=== PATIENT | male | born 1970 | race Caucasian/White ===

== ENCOUNTER 2017-07-07 05:54 | Day surgery (SDC) | payer OTHER ==
[~2017-07-07] VITALS: Ht 167.6 cm; Wt 70.1 kg
[2017-07-07] VITALS (11 sets, daily range): BP systolic 103–126; BP diastolic 54–72; PULSE 66–78; RESP 11–21; Ht 167.6 cm; Wt 70.1 kg
[~2017-07-07 05:54] MED LIST: HTN MEDS; RTPRO5 IH
[2017-07-07] MEDS ORDERED: CEFAZOLIN 2 GM/50 ML (PMX) 50 ML IVPB SCH (06:00)
[2017-07-07] MEDS ORDERED: LACTATED RINGER'S 1,000 ML IV* SCH (06:00)
[2017-07-07] MEDS ORDERED: LOSA100T7 PO (06:42)
[2017-07-07] MEDS ORDERED: HYD25 PO (06:42)
[2017-07-07] MEDS ORDERED: MELO7.5O PO (06:42)
[2017-07-07] MEDS ORDERED: GABA300C16 PO (06:42)
[2017-07-07] MEDS ORDERED: DESFLURANE 15 MIN ONE (07:00)
--- NOTE | 2017-07-07 07:19 | HPN ---
Date/Time of Note Date/Time of Note DATE: 07/07/17 TIME: 07:18 Interval H&P Admission Note Pt. seen H&P reviewed: No system changes JUAREZ MAZARIGEOS MD Jul 07, 2017 07:19
[2017-07-07] MEDS ORDERED: THROMBIN 5000 UNIT VIAL ONE (07:38)
[2017-07-07] MEDS ORDERED: BUPIVACAINE 0.5%/EPI (SDV) 10 ML INJ ONE (07:38)
[2017-07-07] MEDS ORDERED: POLYMYXIN/BACITRACIN 1L IRRIG ONE (07:38)
[2017-07-07] MEDS ORDERED: GELATIN SIZE 100 SPONGE ONE (07:38)
[2017-07-07] MEDS ORDERED: FENTAnyl 50 MCG/ML VIAL ONE (07:58)
[2017-07-07] MEDS ORDERED: BETAMET NA PHOS/AC(6 MG/ML) 5ML INJ ONE (08:14)
[2017-07-07] MEDS ORDERED: DIPHENHYDRAMINE 50 MG INJ IV PRN ×2 (10:00→13:00)
[2017-07-07] MEDS ORDERED: ONDANSETRON 4 MG INJ IV PRN ×3 (10:00→13:00)
[2017-07-07] MEDS ORDERED: MEPERIDINE 25 MG INJ IV PRN ×2 (10:00→13:00)
[2017-07-07] MEDS ORDERED: OXYCODONE/ACETAMINOPHEN (5/325) TAB PO PRN (10:00)
[2017-07-07] MEDS ORDERED: FENTAnyl 50 MCG/ML VIAL IV PRN ×5 (10:00→13:00)
[2017-07-07] MEDS ORDERED: HYDROmorphONE (0.2 MG/ML) 10ML SYG IV PRN ×5 (10:00→13:00)
[2017-07-07] MEDS ORDERED: METOCLOPRAMIDE 10 MG INJ IV PRN ×2 (10:00→13:00)
[2017-07-07] MEDS ORDERED: SUGAMMADEX SODIUM 200 MG/2 ML VIAL IV ONE (10:01)
[2017-07-07] MEDS ORDERED: ROCURONIUM 50 MG INJ ONE (10:01)
[2017-07-07] MEDS ORDERED: CEFAZOLIN 1 GM INJ ONE (10:01)
[2017-07-07] MEDS ORDERED: LIDOCAINE 2% (SDV) 5 ML INJ ONE (10:01)
[2017-07-07] MEDS ORDERED: PROPOFOL 20 ML ONE (10:01)
[2017-07-07] MEDS ORDERED: SUCCINYLCHOLINE CHLORIDE 100 MG/5 ML SYG IV ONE (10:01)
--- NOTE | 2017-07-07 10:04 | PDOCDIS ---
Discharge Instructions CONDITION Patient Condition: Good HOME CARE INSTRUCTIONS: Diet Instructions: Regular ACTIVITY: Activity Restrictions: Avoid heavy lifting Avoid Heavy Housework FOLLOW UP/APPOINTMENTS Follow-up Plan Follow-up with Dr. Mazariegos in 2 weeks JUAREZ MAZARIEGOS MD Jul 07, 2017 10:04
--- NOTE | 2017-07-07 10:12 | OPR ---
Date/Time of Note Date/Time of Note DATE: 07/07/17 TIME: 10:10 Operative Report Free Text/Dictation DATE OF OPERATION: 07/07/2017 PREOPERATIVE DIAGNOSES: Left sided L4-L5 disk herniation with L5 radiculopathy POSTOPERATIVE DIAGNOSES: Left sided L4-L5 disk herniation with L5 radiculopathy OPERATION PERFORMED: Left L4-L5 microdiscectomy SURGEON: Juarez Mazariegos MD ANESTHESIA: General endotracheal ESTIMATED BLOOD LOSS: 15 mL SURGICAL INDICATION: The patient is a 46 year-old male who presents with a history of left lower extremity pain and weakness. He was found to have a disc herniation which correlated well with his symptoms. The patient had failed conservative treatment. Risks, benefits, and alternatives to microdiscectomy were explained to the patient and they wished to proceed. Risks explained included but were not exclusive of bleeding, infection, cauda equina syndrome, nerve injury, dural tear, iatrogenic instability, recurrent disc herniation, fracture, vascular injury, bowel injury, stroke, heart attack and pulmonary embolism. DESCRIPTION OF TECHNIQUE: The patient was identified in the preoperative area and taken to the operating room. Rapid induction of general endotracheal anesthesia was performed. The patient was given 2 g of cefazolin for prophylaxis. The patient was then placed in the prone position on the Len frame on a Can flat top table with all prominences well padded. The back was prepped and draped in the usual sterile manner. Using a spinal needle and intraoperative fluoroscopy, the appropriate level was clearly identified (L4-L5) . The skin was injected using 0.5% Marcaine with epinephrine. Longitudinal midline incision was then created using a 10 blade. Further dissection through soft tissue was performed using electrocautery down to the spinous processes. The dissection was taken down the left side of the lamina and over the facet joint capsule. A self-retaining retractor was applied. Again, intraoperative fluoroscopy confirmed the appropriate level. The microscope was brought into use for microdissection. A small portion of the caudal aspect of the cephalad lamina was resected using a high-speed bur. A series of Kerrison rongeurs were then used to resect the ligamentum flavum. The dura and traversing nerve root were both directly visualized. These were retracted gently in a medial direction. Immediately, the extruded disc fragment was noted. The pseudo anulus was incised using an 11 blade. Several loose fragments of disk were removed. These were removed back to a stable portion of the disk. The disk space was further pressurized using a using normal saline through a syringe to ensure that no loose fragments remained behind. Palpation with a ball-tip probe did not reveal any further stenosis. The traversing L5 nerve root was noted to be significantly decompressed. Meticulous attention was paid towards hemostasis using FloSeal as well as Gelfoam and thrombin. Care was taken to remove all FloSeal and Gelfoam prior to wound closure. The fascia was then closed using 0 Vicryl in an interrupted fashion. Subcutaneous tissue was closed using 2-0 Vicryl in an interrupted fashion. The skin was closed using a running 4-0 Monocryl stitch. The wound was dressed using Dermabond and a 4x4 sterile gauze. The patient was returned to the supine position. He was extubated immediately postoperatively and taken to the recovery room in stable condition. COMPLICATIONS: None. Surgeon see signature line Anesthesia Type: general Estimated Blood Loss: 10 - 50 ml's Transfusion Required: no Specimen: none Specimens L4-L5 disk Grafts/Implants: none Complications: no Pt Condition Post Procedure: stable Disposition: PACU JUAREZ MAZARIEGOS MD Jul 07, 2017 10:12
[2017-07-07] MEDS ORDERED: PROCHLORPERAZINE 10 MG TAB PO PRN (10:30)
[2017-07-07] MEDS ORDERED: HYDROCODONE/APAP (5/325) TAB PO PRN ×2 (10:30)
[2017-07-07] MEDS ORDERED: NALOXONE (0.4 MG/ML) INJ IV PRN (10:30)
[2017-07-07] MEDS ORDERED: NACL 0.9% 3 ML SYG IV SCH (10:30)
[2017-07-07] MEDS ORDERED: HYDROmorphONE 1 MG/ML SYG IV PRN (10:30)
[2017-07-07] MEDS: HYDROmorphONE (0.2 MG/ML) 10ML SYG IV PRN ×2 (10:31→11:05)
--- NOTE | 2017-07-07 13:09 | RADRPT ---
PROCEDURE: XR fluoro guidance CLINICAL INDICATION: Lumbar decompression TECHNIQUE: Intraoperative fluoroscopy performed. 2 images submitted. Total fluoro time: 6.1 secon ds COMPARISON: None available FINDINGS: Instruments demonstrated posteriorly at the L4-5 level. See operative report for details. IMPRESSION: Fluoroscopic guidance for lumbar spine surgery. RPTAT: VV .Angel Mcallister MD, Date Time Electronically viewed and signed by .Angel Mcallister MD, on 07/07/2017 13:09 .O/
== END 2017-07-07 13:20 | disposition home or self-care (01) ==
LOC: SDS 05:54
PROVIDERS: ATTEND Orthopaedic Surgery
DX: M51.16 Intervertebral disc disorders with radiculopathy, lumbar region (principal); I11.0 Hypertensive heart disease with heart failure; I50.9 Heart failure, unspecified; I25.10 Atherosclerotic heart disease of native coronary artery without angina pectoris; E78.5 Hyperlipidemia, unspecified; J44.9 Chronic obstructive pulmonary disease, unspecified; F17.210 Nicotine dependence, cigarettes, uncomplicated
CPT/HCPCS: 63030; 72100; 88304; 97162; J0690; J0702; J1170; J2175; J2405; J3010; Z7512; Z7610; J7999

== ENCOUNTER 2018-11-09 06:23 | Inpatient (IN) | payer OTHER ==
[2018-11-09] VITALS (28 sets, daily range): BP systolic 89–137; BP diastolic 46–118; PULSE 89–130; RESP 14–29; Ht 167.6 cm; Wt 66.8 kg
[~2018-11-09] VITALS: Ht 167.6 cm; Wt 66.8 kg
[~2018-11-09 06:23] MED LIST changes: +GABA300C16 PO; +HYDR25TA6 PO; +LOSA100T15 PO; +MELO7.5O PO
[2018-11-09] MEDS ORDERED: ROCURONIUM 50 MG INJ ONE (07:00)
[2018-11-09] MEDS ORDERED: CEFAZOLIN 1 GM INJ ONE ×2 (07:00→07:46)
[2018-11-09] MEDS ORDERED: SEVOFLURANE 15 MIN ONE (07:00)
--- NOTE | 2018-11-09 07:16 | PREAC ---
Date/Time of Note Date/Time of Note DATE: 11/09/18 TIME: 07:07 Anesthesia Eval and Record Evaluation Time Pre-Procedure Interview DATE: 11/09/18 TIME: 07:07 Age 48 Sex male NPO: 8 hrs Preoperative diagnosis Degenerative Disc Disease L4-5 With Left sided SUB Planned procedure L4-5 And L5 S1 Inter Body Fusion Retroperitoneal Aproach Autograft Allograft Synthetic Graft BMP With Posterior Spinal Instrumented Fusion Past Medical History Past Medical History: Includes Cardio: Dyslipidemia, Arrythmia Endo: Other Pulm: Smoking Hx, Asthma Neuro: Other Musculoskeletal: Osteoarthritis Renal: Other Hepatic: Other GI: Other Heme: Other Psych: Depression, Anxiety Infection(s): Other Recreational drugs: Other : Other Surgery & Anesthesia Issues Hx of difficult intubation, Aspiration risk Meds Anticoagulation: No Beta Elsy within 24 hr: No Reason Beta Elsy not given: Pt. not on B-Elsy Reported Medications Meloxicam* (Meloxicam*) 7.5 Mg/5 Ml Oral.susp, 15 MG PO DAILY, #300 ML 07/07/17 Gabapentin* (Gabapentin*) 300 Mg Capsule, 300 MG PO DAILY, #60 CAP 07/07/17 Hydrochlorothiazide* (Hydrochlorothiazide*) 25 Mg Tab, 25 MG PO DAILY, #30 TAB 07/07/17 Losartan Potassium* (Losartan Potassium*) 100 Mg Tablet, 100 MG PO DAILY, TAB 07/07/17 [Htn Meds] No Conflict Check 02/08/13 Albuterol Sulfate* (Proventil* Neb) 0.5 Ml Nebu, 0.5 ML IH PRN 02/08/13 Meds reviewed: Yes Allergies Coded Allergies: No Known Allergy (Unverified , 11/08/18) Allergies Reviewed: Yes Labs/Studies Labs Reviewed: Reviewed by anesthesiologist test: N/A Studies: ECG, CXR Pre-procedure Exam Airway: Adequate mouth opening Mallampati: Mallampati II Teeth: Normal Lung: Normal Heart: Abnormal Anticipated Difficutly with IV: Anticipate Difficult IV Access ASA Physical Status ASA physical status: 2 Emergency: None Planned Anesthetic General/MAC: ETT Neuraxial: Other Nerve block: Other Planned Pain Management Parenteral pain med, Local by surgeon Pre-operative Attestations Prior to commencing anesthesia and surgery, the patient was re-evaluated, there was verification of: *The patient's identity *The results of appropriate recent lab work and preoperative vital signs *The above evaluation not changing prior to induction *Anesthetic plan, risk benefits, alternative and complications discussed with patient/family; questions answered; patient/family understands, accepts and wishes to proceed. NGUYEN STAFFORD MD Nov 09, 2018 07:16
[2018-11-09] MEDS ORDERED: BUPIVACAINE 0.5%/EPI (SDV) 30 ML INJ ONE ×2 (07:46→12:55)
[2018-11-09] MEDS ORDERED: GELATIN SIZE 100 SPONGE ONE (07:46)
[2018-11-09] MEDS ORDERED: THROMBIN 5000 UNIT VIAL ONE (07:46)
[2018-11-09] MEDS ORDERED: HEPARIN 1000 UNITS/ML 10 ML INJ ONE (07:46)
--- NOTE | 2018-11-09 07:46 | HPN ---
Date/Time of Note Date/Time of Note DATE: 11/09/18 TIME: 07:46 Interval H&P Admission Note Pt. seen H&P reviewed: No system changes JUAREZ MAZARIEGOS MD Nov 09, 2018 07:46
--- NOTE | 2018-11-09 12:29 | OPR ---
DATE OF OPERATION: 11/09/2018 SURGEON: Ej Magallon MD [employer] PLANT OPERATOR: Juarez Mazariegos MD SECOND DATA CONVERSION OPERATOR: Vy Singh MD PREOPERATIVE DIAGNOSIS: Rule out ureteral injury. POSTOPERATIVE DIAGNOSES: 1. Degenerative disk disease, no evidence of ureteral injury. 2. Gross hematuria. INDICATIONS FOR PROCEDURE: This patient has undergone an anterior lumbar disk replacement through a left retroperitoneal approach. At the end of the case he was noticed to have some mild gross hematur ia. FINDINGS: I was consulted in order to identify the left ureter and identify any possible ureteral tr auma. This was an intraoperative consultation. The patient was under anesthesia. Abdomen was still open. PROCEDURE IN DETAIL: Through the existing abdominal incision, the retroperitoneum was reentered. Wi th the help of Dr. Singh and Dr. Mazariegos, the retractors were placed. Retroperitoneum was exam ined. The 2 levels of disk replacement were identified. The common iliac artery as well as a common iliac vein were identified. The colon mesentery as well as the Gerota's fascia along the lower pole of the kidney were identified. At this point, the ureter was identified to be within the retracted tissue medially. Therefore, the ureter was not lying over the common iliac artery. This would be t he appropriate approach for the spine procedure. Without opening the peritoneum, the ureter was part ially and carefully dissected off of the posterior aspect of the colon mesentery and Gerota's fascia. This dissection was carried from one spine level cephalad to where the highest lumbar disk had been replaced. Ureter in this area appeared to be completely intact. Next, ureter was carefully dissect ed all the way down deep into the pelvis beyond the sacrum. Ureter appeared to be intact. There jennifer eared to be no evidence of urine leak. There appeared to be no hydronephrosis. There was good peris talsis to the ureter. The periureteral adhesions were carefully taken down in order to examine the m edial, lateral, posterior and anterior aspects of the ureter. The ureter appeared to be without any evidence of avulsion or injury. It appeared that the hematuria may have been due to catheter placeme nt or possibly due to ureteral contusion rather than coronary due to retraction against the ureter ra ther than any tears or avulsion. Since the ureter appeared to be completely intact within the field of examination, decision was made to not do any further procedures on the ureter. This procedure wa s performed on the left ureter. The right ureter was not in the field of dissection. Case was turne d back over to Dr. Singh and Dr. Mazariegos for closure of the abdomen. Plan for patient will be for patient to continue keeping the catheter for 2 to 3 more days, obtain a renal ultrasound to rule out hydronephrosis. BLOOD LOSS: From this port of the operation, minimal. BLOOD ADMINISTERED: None from this portion of the operation. Dictated By: EJ MAGALLON MD SR/NTS Conf#: [id number] DID#: [id number] CC: JUAREZ MAZARIEGOS MD;*EndCC*
--- NOTE | 2018-11-09 15:02 | OPR ---
Date/Time of Note Date/Time of Note DATE: 11/09/18 TIME: 14:41 Operative Report Free Text/Dictation DATE OF OPERATION: 11/09/2018 PREOPERATIVE DIAGNOSES: 1. L4-5 degenerative disc disease with foraminal stenosis with radiculopathy 2. L5-S1 degenerative disc disease with foraminal stenosis with radiculopathy POSTOPERATIVE DIAGNOSES: 1. L4-5 degenerative disc disease with foraminal stenosis with radiculopathy 2. L5-S1 degenerative disc disease with foraminal stenosis with radiculopathy OPERATION PERFORMED: 1. Anterior lumbar interbody fusion L4-5 2. Placement of anterior interbody device L4-5 3. Placement of posterior spinal segmental instrumentation L4-5 4. Posterior spinal fusion L4-5 5. Anterior lumbar interbody fusion L5-S1 6. Placement of anterior interbody device L5-S1 7. Placement of posterior spinal segmental instrumentation L5-S1 8. Posterior spinal fusion L5-S1 9. Interpretation of neuromonitoring SURGEON: Juarez Mazariegos MD Vascular surgeon: Kun Norman MD ANESTHESIA: General endotracheal ESTIMATED BLOOD LOSS: 350 cc SURGICAL INDICATION: The patient is a 48 year-old male who presents with an increasing history of back and bilateral leg pain. He has a past medical history significant for a left sided L4-5 microdiskectomy. The patient was found to have severe degenerative disk disease at L4-5 and L5-S1 with associated foraminal stenosis with radiculopathy. The patient had failed conservative treatments. Risks, benefits and alternatives to an anterior and posterior spinal fusion with instrumentation were explained to the patient including but not exclusive of bleeding, infection, visceral injury, nerve injury, nonunion, instrumentation failure, lack of symptom relief, myocardial infarction, stroke, and pulmonary embolism, and they wished to proceed. DESCRIPTION OF TECHNIQUE: The patient was identified in the preoperative area and taken to the operating room. Rapid induction of general endotracheal anesthesia was performed. Patient was given 2 grams of ancef for prophylaxis. The patient was positioned in the supine position on the operative table. All bony prominences were well padded. The patient's abdomen and left flank were prepped and draped in the usual sterile fashion. A time out was held. A longitudinal skin incision was made across the L4-S1 level by our vascular surgeon Dr. Norman. After the exposure was completed, I performed a L4-5 diskectomy. The disc was incised using a sharp 15 mm blade. I then used a vazquez elevator to loosen the disk material from the superior and inferior endplates. I then used a rongeur to remove the disc material and a series of curved and straight curettes to evacuate the disc space. I also used a series of pituitaries and kerrisons to ensure appropriate end plate preparation. Attention was placed to ensure removal of disk material to bleeding endplates without violation of the endplate. I then used the trial rasps to prepare and size the disc space and was able to place a 13 mm trial allograft FRA spacer with 8 degrees of lordosis. To ensure appropriate sizing of the implant, I checked for fit and placement under C arm control and I felt the 8 degree lordotic 13 mm cage gained good lordosis and mu-ism of disc height and was an appropriate fit. I then inserted the 13mm RFA cage after the trail. This cage was filled with 1 sponge of BMP and morselized bone allograft. A butress screw with a washer was then placed in the L4 vertebral body using the guide under fluoroscopy . Additional morselized allograft was placed around and anterior to the cage in the disc space. 2mL of tisseal was also used prior to placement of the cage in order to reduce the risk of BMP radiculitis. The exposure was then extended distally to the L5-S1 disk space. I performed a L5-S1 diskectomy. The disc was incised using a sharp 15 mm blade. I then used a vazquez elevator to loosen the disk material from the superior and inferior endplates. I then used a rongeur to remove the disc material and a series of curved and straight curettes to evacuate the disc space. I also used a series of pituitaries and kerrisons to ensure appropriate end plate preparation. Attention was placed to ensure removal of disk material to bleeding endplates without violation of the endplate. I then used the trial rasps to prepare and size the disc space and was able to place a 11 mm trial allograft FRA spacer with 8 degrees of lordosis. To ensure appropriate sizing of the inplant, I checked for fit and placement under C arm control and I felt the 8 degree lordotic 11 mm cage gained good lordosis and mu-ism of disc height and was an appropriate fit. I then inserted the 11mm RFA cage after the trail. This cage was filled with a small BMP and morselized bone allograft. A butress screw with a washer was then placed in the L5 vertebral body using the guide under fluoroscopy . Additional morselized allograft was placed around and anterior to the cage in the disc space. 2mL of tisseal was also used prior to placement of the cage in order to reduce the risk of BMP radiculitis. The wound was then irrigated. X-rays were taken to check for instruments. Prior to wound closure, there was noted to be some mild blood tinged urine in the catheter. Therefor, the wound was re-explored. Urology was called and the ureter was explored and disected. There was no injury the the ureter noted. The wound was then closed by our vascular access surgeon in standard technique. The posterior rectus sheath and anterior rectus sheath were both repaired. Sterile dressing was then placed. We then focused on placement of posterior spinal segmental instrumentation from L4-S1.Attention was then turned toward the decompression and instrumented fusion procedure from L4-S1. The patient was flipped to the prone position with all bony promineneces well padded. We ensured that the antibiotics were appropriately redosed. The lumbar spine was then prepped and draped in sterile fashion. A timeout was once again performed. . Using intraoperative fluoroscopy, the pedicles were identified at each level. Care was taken to alter the fluoroscopic view to have a true AP and lateral at each level. Jamshidi needles were then passed down to the lateral aspect of the pedicles through stab incisions. The Jamshidi needles were malleted into the pedicles. These were also performed under EMG guidance. Care was taken to ensure that the needles did not pass the medial wall of the pedicle on the AP view prior to checking that the needle was past the posterior wall of the vertebral body. The needles were then malleted further into the vertebral bodies themselves. Guidewires were passed through the needles and the needles were removed. Taps were applied over the guidewires. Screws were then placed bilaterally into the vertebral bodies. AP and lateral views confirmed appropriate placement of the instrumentation. Attention was turned toward the posterior spinal fusion from L4-S1. Rods were selected of the appropriate length and placed into the screw heads. End caps were applied and final tightening was performed using a dwnkic-qeaieqs-dgxfnf wrench. The exposed facet joints were decorticated using a bur. A small remaining amount of the bone (allograft) was placed into the facet joints to facilitate the posterior fusion. The wound was irrigated copiously using normal saline. The fascia was then closed using 1 Vicryl in interrupted fashion. Subcutaneous tissue was closed usi ng 2-0 Vicryl in interrupted fashion. Skin was closed using a running 4-0 Monocryl stitch. The wounds were dressed using Dermabond, sterile gauze and Tegaderm. The patient was returned to the supine position. The patient was extubated immediately postoperatively and taken to the recovery room in stable condition. Procedure Date: Nov 09, 2018 Preoperative Diagnosis 1. L4-5 degenerative disc disease with foraminal stenosis with radiculopathy 2. L5-S1 degenerative disc disease with foraminal stenosis with radiculopathy Postoperative Diagnosis 1. L4-5 degenerative disc disease with foraminal stenosis with radiculopathy 2. L5-S1 degenerative disc disease with foraminal stenosis with radiculopathy Operation/Procedure Performed 1. Anterior lumbar interbody fusion L4-5 2. Placement of anterior interbody device L4-5 3. Placement of posterior spinal segmental instrumentation L4-5 4. Posterior spinal fusion L4-5 5. Anterior lumbar interbody fusion L5-S1 6. Placement of anterior interbody device L5-S1 7. Placement of posterior spinal segmental instrumentation L5-S1 8. Posterior spinal fusion L5-S1 9. Interpretation of neuromonitoring Surgeon see signature line [employer] Manager Kun Norman MD (Vascular access surgeon) Anesthesia Type: general Estimated Blood Loss: other Transfusion none Specimen none Grafts/Implants L4-5: 13 mm; 8 degree lordotic FRA allograft L5-S1: 11 mm; 8 degree lordotic FRA allograft Buttress screw and washer x 2 Small BMP 35 cc of corticocancellous bone allograft L4 and L5: 6.5 x 45 mm NuVasive Pedicle screw x 4 S1: 6.5 x 40 mm NuVasive Pedicle screw x 2 60 and 65 mm Kael and end caps Complications none Pt Condition Post Procedure: stable Disposition: PACU Procedure Description The patient was identified in the preoperative area and taken to the operating room. Rapid induction of general endotracheal anesthesia was performed. Patient was given 2 grams of ancef for prophylaxis. The patient was positioned in the supine position on the operative table. All bony prominences were well padded. The patient's abdomen and left flank were prepped and draped in the usual sterile fashion. A time out was held. A longitudinal skin incision was made across the L4-S1 level by our vascular surgeon Dr. Norman. After the exposure was completed, I performed a L4-5 diskectomy. The disc was incised using a sharp 15 mm blade. I then used a vazquez elevator to loosen the disk material from the superior and inferior endplates. I then used a rongeur to remove the disc material and a series of curved and straight curettes to evacuate the disc sp valencia. I also used a series of pituitaries and kerrisons to ensure appropriate end plate preparation. Attention was placed to ensure removal of disk material to bleeding endplates without violation of the endplate. I then used the trial rasps to prepare and size the disc space and was able to place a 13 mm trial allograft FRA spacer with 8 degrees of lordosis. To ensure appropriate sizing of the implant, I checked for fit and placement under C arm control and I felt the 8 degree lordotic 13 mm cage gained good lordosis and mu-ism of disc height and was an appropriate fit. I then inserted the 13mm RFA cage after the trail. This cage was filled with 1 sponge of BMP and morselized bone allograft. A butress screw with a washer was then placed in the L4 vertebral body using the guide under fluoroscopy . Additional morselized allograft was placed around and anterior to the cage in the disc space. 2mL of tisseal was also used prior to placement of the cage in order to reduce the risk of BMP radiculitis. The exposure was then extended distally to the L5-S1 disk space. I performed a L5-S1 diskectomy. The disc was incised using a sharp 15 mm blade. I then used a vazquez elevator to loosen the disk material from the superior and inferior endplates. I then used a rongeur to remove the disc material and a series of curved and straight curettes to evacuate the disc space. I also used a series of pituitaries and kerrisons to ensure appropriate end plate preparation. Attention was placed to ensure removal of disk material to bleeding endplates without violation of the endplate. I then used the trial rasps to prepare and size the disc space and was able to place a 11 mm trial allograft FRA spacer with 8 degrees of lordosis. To ensure appropriate sizing of the inplant, I checked for fit and placement under C arm control and I felt the 8 degree lordotic 11 mm cage gained good lordosis and mu-ism of disc height and was an appropriate fit. I then inserted the 11mm RFA cage after the trail. This cage was filled with a small BMP and morselized bone allograft. A butress screw with a washer was then placed in the L5 vertebral body using the guide under fluoroscopy . Additional morselized allograft was placed around and anterior to the cage in the disc space. 2mL of tisseal was also used prior to placement of the cage in order to reduce the risk of BMP radiculitis. The wound was then irrigated. X-rays were taken to check for instruments. Prior to wound closure, there was noted to be some mild blood tinged urine in the catheter. Therefor, the wound was re-explored. Urology was called and the ureter was explored and disected. There was no injury the the ureter noted. The wound was then closed by our vascular access surgeon in standard technique. The posterior rectus sheath and anterior rectus sheath were both repaired. Sterile dressing was then placed. We then focused on placement of posterior spinal segmental instrumentation from L4-S1.Attention was then turned toward the decompression and instrumented fusion procedure from L4-S1. The patient was flipped to the prone position with all bony promineneces well padded. We ensured that the antibiotics were appro priately redosed. The lumbar spine was then prepped and draped in sterile fashion. A timeout was once again performed. . Using intraoperative fluoroscopy, the pedicles were identified at each level. Care was taken to alter the fluoroscopic view to have a true AP and lateral at each level. Jamshidi needles were then passed down to the lateral aspect of the pedicles through stab inci sions. The Jamshidi needles were malleted into the pedicles. These were also performed under EMG guidance. Care was taken to ensure that the needles did not pass the medial wall of the pedicle on the AP view prior to checking that the needle was past the posterior wall of the vertebral body. The needles were then malleted further into the vertebral bodies themselves. Guidewires were passed through the needles and the needles were removed. Taps were applied over the guidewires. Screws were then placed bilaterally into the vertebral bodies. AP and lateral views confirmed appropriate placement of the instrumentation. Attention was turned toward the posterior spinal fusion from L4-S1. Rods were selected of the appropriate length and placed into the screw heads. End caps were applied and final tightening was performed using a iuhvfd-armqlax-kiocdh wrench. The exposed facet joints were decorticated using a bur. A small remaining amount of the bone (allograft) was placed into the facet joints to facilitate the posterior fusion. The wound was irrigated copiously using normal saline. The fascia was then closed using 1 Vicryl in interrupted fashion. Subcutaneous tissue was closed using 2-0 Vicryl in interrupted fashion. Skin was closed using a running 4-0 Monocryl stitch. The wounds were dressed using Dermabond, sterile gauze and Tegaderm. The patient was returned to the supine position. The patient was extubated immediately postoperatively and taken to the recovery room in stable condition. JUAREZ MAZARIEGOS MD Nov 09, 2018 14:52
--- NOTE | 2018-11-09 15:07 | NUR ---
RECEIVED RESTLESS AND CRYING IN PAIN. ABDOMINAL DRESSING DRY AND INTACT. BACK DRESSING DRY AND INTACT. A LINE ON LEFT WRIST IN PLACE WITH GOOD WAVEFORM. IV ACCESS ALSO ON RIGHT HAND INTACT.
[2018-11-09] MEDS ORDERED: FENTAnyl 50 MCG/ML VIAL ONE (15:11)
[2018-11-09] MEDS ORDERED: MEPERIDINE 25 MG INJ ONE (15:11)
--- NOTE | 2018-11-09 15:16 | PAC ---
Date/Time of Note Date/Time of Note DATE: 11/09/18 TIME: 15:16 Post-Anesthesia Notes Post-Anesthesia Note Last documented vital signs Vital Signs Date Temp Pulse Resp B/P (MAP) Pulse Ox O2 O2 Flow FiO2 Time Delivery Rate 11/09/18 97.5 96 18 136/82 98 Room Air 07:19 (100) Activity: WNL Respiratory function: WNL Cardiovascular function: WNL Mental status: Baseline Pain reasonably controlled: Yes Hydration appropriate: Yes Nausea/Vomiting absent: No NGUYEN STAFFORD MD Nov 09, 2018 15:16
[2018-11-09] MEDS ORDERED: ONDANSETRON 4 MG INJ IV PRN ×2 (15:30)
[2018-11-09] MEDS ORDERED: ACETAMINOPHEN 325 MG TAB PO PRN (15:30)
[2018-11-09] MEDS ORDERED: HYDROCODONE/APAP (5/325) TAB PO PRN ×2 (15:30)
[2018-11-09] MEDS ORDERED: NACL 0.9% 3 ML SYG IV SCH (15:30)
[2018-11-09] MEDS ORDERED: FENTAnyl 50 MCG/ML VIAL IV PRN ×3 (15:30)
[2018-11-09] MEDS ORDERED: METOCLOPRAMIDE 10 MG INJ IV PRN (15:30)
[2018-11-09] MEDS ORDERED: MEPERIDINE 25 MG INJ IV PRN (15:30)
[2018-11-09] MEDS ORDERED: HYDROmorphONE 1 MG/5 ML IV SYRINGE IV PRN ×2 (15:30)
[2018-11-09] MEDS ORDERED: PROCHLORPERAZINE 10 MG TAB PO PRN (15:30)
[2018-11-09] MEDS ORDERED: AL HYDROX/MG HYDROX/SIMETH 30 ML CUP PO PRN (15:30)
[2018-11-09] MEDS ORDERED: NALOXONE (0.4 MG/ML) INJ IV PRN (15:30)
[2018-11-09] MEDS ORDERED: hydrALAzine 20 MG INJ IV PRN (15:30)
[2018-11-09] MEDS ORDERED: LABETALOL HCL 20MG INJ IV PRN (15:30)
[2018-11-09] MEDS: HYDROmorphONE 0.2 MG/ML PCA IV SCH (15:33)
--- NOTE | 2018-11-09 15:48 | NUR ---
DR CLIFFORD INFORMED OF CONSULT THROUGH HIS OFFICE SEC CESSY BY [facility] PACU STOCKKEEPER.
--- NOTE | 2018-11-09 16:00 | NUR ---
A LINE DISCONTINUED, PRESSURE APPLIED , NO BLEEDING NOTED.
[2018-11-09] MEDS: HYDROmorphONE 1 MG/5 ML IV SYRINGE IV PRN ×2 (16:03→16:19)
--- NOTE | 2018-11-09 16:05 | NUR ---
PROP AND SCENERY MAKER IN USE BUT NEEDS TO BE REMINDED AND ENCOURAGED WHEN C/O PAIN.
--- NOTE | 2018-11-09 16:06 | NUR ---
CALM AT THIS TIME. DOZING ON AND OFF, EASILY AWAKENED. NO S/S BLEEDING.
--- NOTE | 2018-11-09 16:41 | OPR ---
DATE OF OPERATION: PREOPERATIVE DIAGNOSIS: Degenerative disk disease, lumbosacral spine. POSTOPERATIVE DIAGNOSIS: Degenerative disk disease, lumbosacral spine. PROCEDURES: 1. Anterior retroperitoneal exposure interbody fusion lumbosacral spine, L4 to L5. 2. Anterior retroperitoneal exposure interbody fusion lumbosacral spine, L5 to S1. SURGEON: Ronnie Singh MD COSURGEON: Juarez Mazariegos MD ESTIMATED BLOOD LOSS: 150 mL INFORMED CONSENT: Risks, benefits, complications, alternative therapies were explained to the patien t and consent was obtained. OPERATIVE TECHNIQUE: The patient was placed in supine position, prepped and draped in usual sterile fashion. Timeout was called. Antibiotics were given. Risks and benefits that were explained to the patient included but not limited to bleeding, infection, damage to bowel, damage to ureter, wound in fection, wound dehiscence, DVT, PE, loss of limb, loss of life, high risk nature of the operation wer e fully explained and stressed to the patient. All questions answered. The patient was placed in mcqueen pine position. I made a 10 cm incision midline from umbilicus down to the xiphoid process. Incision was taken down to subcutaneous tissue which was then opened using electrocautery. Left anterior rec tus sheath was opened in the direction of the wound. The left rectus muscle was mobilized superiorly and inferiorly 5 cm each. Posterior rectus sheath was incised superiorly about 3 cm. Bookwalter re tractor was placed retracting the bowel contents to the right and left rectus muscle to left. I diss ected the left common iliac artery and vein, external iliac artery and vein. The middle sacral vesse ls were ligated using titanium clips and the iliolumbar vein on the left side was ligated using 2-0 s ilk ties and titanium clips. Exposure for L4 to L5 was obtained by moving the left common iliac trina ry and vein, external iliac artery and vein, vena cava and aorta to the right. Exposure for L5 to S1 was obtained between the right and left common iliac artery and vein. We proceeded with the diskect demar and placement of the new cage. Please refer to Dr. Mazariegos's dictations for the details of viola t operation. After all the x-rays were read by Dr. Mazariegos, needle count and sponge count was max ect. The wound was irrigated using antibiotic solution. Posterior rectus sheath was closed using 0 Vicryl suture in running fashion. At this time, we noticed that the patient had a tinge of blood in the ureter. The wound was opened again. Urology consultation was obtained. The urologist came to t he room, examined the ureter and he thought that there is no injury to the ureter. The wound was irr igated again. The anterior rectus sheath was closed using a #1 Vicryl suture in running fashio n with interrupted sutures in the middle. The wound was irrigated again and closed in 2 layers of 2- 0 Vicryl suture for subQ and 4-0 Monocryl suture for running subcuticular skin closure. The patient tolerated the procedure well. Dictated By: RONNIE SINGH MD FM/NTS Conf#: [id number] DID#: [id number] CC: JUAREZ MAZARIEGOS MD; AYAN CLIFFORD MD;*End*
[2018-11-09] MEDS ORDERED: DIPHENHYDRAMINE 50 MG INJ ONE (16:44)
--- NOTE | 2018-11-09 16:48 | CONS ---
DATE OF ADMISSION: 11/09/2018 DATE OF CONSULTATION: REASON FOR CONSULTATION: Surgical. HISTORY OF PRESENT ILLNESS: This is a 48-year-old male with a history of degenerative disk disease, lumbosacral spine. PAST MEDICAL HISTORY: Hypertension, hyperlipidemia. PAST SURGICAL HISTORY: None. ALLERGIES: NONE. SOCIAL HISTORY: No smoking, drinking or drug use. MEDICATION LIST: Reviewed. PHYSICAL EXAMINATION: VITAL SIGNS: Blood pressure is 110/60, pulse is 80, respirations 18. CARDIOVASCULAR: Regular rate and rhythm. Normal S1, S2. LUNGS: Clear. ABDOMEN: Soft. EXTREMITIES: Warm. IMPRESSION: Degenerative disk disease, lumbosacral spine. RECOMMENDATIONS: We will proceed with anterior retroperitoneal exposure interbody fusion of lumbosac ral spine. Risks, benefits, complications, alternative therapies, high-risk nature of the operation were fully explained to the patient, consent obtained. Risks and benefits that were explained to the patient included but not limited to bleeding, infection, damage to the bowel, damage to ureter, woun d infection, wound dehiscence, DVT, PE, loss of limb, loss of life, high-risk nature of the operation were fully explained and stressed to the patient. Dictated By: RONNIE REICH MD FM/NTS Conf#: [id number] DID#: [id number] CC: AYAN CLIFFORD MD; JUAREZ MAZARIEGOS MD;*EndCC*
--- NOTE | 2018-11-09 16:52 | NUR ---
REFERRED TO DR STAFFORD FOR RASHES IN FACE, BENADRYL GIVEN. CAME IN AND STATED RASHES IS FROM [facility]. PHYSICAL THERAPIST AT [facility] AND WORKED ON PATIENT, ABLE TO SIT ONLY WITH SOME DISCOMFORT. MOVING LEGS AND FEET WELL, WITH GOOD PEDAL PULSES.
--- NOTE | 2018-11-09 16:53 | NUR ---
PT [facility] Patient: Alfonzo Montiel : 1970 Age/Sex: 48/M Unit#: [id number] Room/Bed: 418/A User: Jude May PT Date: 11/09/18 16:44 Type: PT Technical Record Therapy day number 1 Evaluation Start Time 15:35 Evaluation Total Time 0 min Subjective Current complaint of pain Pain Scale NUMERIC Pain Intensity 10 (0-10) Patient Stated Goal for Pain Relief 0 (0-10) Pain Level Comment back pain/surgical site pain Pre Treatment Vital Signs Stable Yes Exercise Assessment Label Bilat Lower Extremity Exercise Type Active ROM Additional Exercise Comments semi-supine APs Supine to Sit Moderate Assist Bed Mobility Sit to Supine Maximum Assist Sitting Tolerance 2 min Additional Mobility Comments rolling L and R multiple times to find comfortable position, log-roll Patient uses wheelchair Not Applicable Additional Gait Comments TBA Additional Stairs Assist Comments TBA Static Sitting Balance Fair minus Dynamic Sitting Balance Poor plus Safety Judgement Fair Activity Tolerance Poor Equipment Present A pump Luke Catheter IV pump LOGGING ASSISTANT Additional Equipment Present PACU lines and tubes Post Treatment Pain Intensity 10 0-10 Variance Documentation SEE PT EVAL NOTES PT Technical Record Comment PT EVAL Pt is a 48 yo M S/P anterior lumbar interbody fusion L4-5, L5-S1; anterior interbody device L4-5, L5-S1; posterior spinal segment instrumentation L4-5, L5-S1; posterior spinal fusion L4-L5, L5-S1. Pt received in PACU. Precautions: Spinal precautions, LSO when OOB CLOF: soda flaker cleared pt for PT evaluation. Pt received semi-supine in bed, vitals assessed and stable, agreeable to PT evaluation. Noted pt in significant pain, pushing down with B hands to offload back in effort to reduce pain, unable to get comfortable. Pt educated in spinal precautions, use of LSO (when arrives), and purpose of PT evaluation. Rolling L and R with mod-maxA, supine<>sitting EOB with mod-maxA. Noted once sitting pt BP at 77/61, pt returned to supine position. RN notified. Pt continued to report discomfort, a "herman horse feeling" regardless of position, repositioning to left, right sidelying, and finally back in semi-supine. Pt left in semi-supine, all needs in reach, RN notified of pt's status. Recommendation: PT evaluation limited due to pt with signficant low back discomfort, unable to find comfortable position whether in side-lying or semi-supine. Pt mobility limited by back pain, requiring mod-maxA for mobility tasks. D/c recommendation pending pt progress. Anticipated DME: FWW, 3:1 commode. P: Continue c PT POC (QID x 7) Addendum: 11/11/18 at 1308 by JUDE MAY PT Addition: PLOF: Pt lives with and children in a [facility] with 0E. Pt reports he was ambulatory using a FWW.
--- NOTE | 2018-11-09 16:54 | NUR ---
DR CLIFFORD AT BEDSIDE AND SPOKE TO PATIENT AND TO HIS AND ANSWERED THEIR QUESTIONS. REPORT TO THOMAS HERNANDEZ. FOR TRANSFER TO ROOM 418.
[2018-11-09] MEDS ORDERED: ALBUTEROL HFA 8 GM INHALER INH PRN (17:00)
[2018-11-09] MEDS ORDERED: DIPHENHYDRAMINE 50 MG INJ IV PRN (17:00)
--- NOTE | 2018-11-09 17:30 | NUR ---
ADMIT TO 4 WEST RECEIVED PT FROM PACU. PT MOANING, IN PAIN 8/10 AT THIS TIME. VSS. LENS GRINDER USE RINFORCED. PT WITH AT BEDSIDE, ORIENTED TO ROOM, POC AND UNIT ROUTINE, ALL QUESTIONS ANSWERED. WILL CONTINUE MONITORING.
[2018-11-09] MEDS: SOD CHLORIDE 0.9% 1,000 ML IV SCH (17:42)
[2018-11-09] MEDS: CEFAZOLIN 1 GM/50 ML (PMX) 50 ML IVPB SCH ×2 (17:42→23:57)
--- NOTE | 2018-11-09 18:30 | NUR ---
END OF SHIFT NOTE PT RESTING IN BED, SLEEPING. WITH AT BEDSIDE. VSS, NO CHANGE IN CONDITION. DELIVERY AND MAIL SORTER INFUSING. ATTEMPTED TO INSTRUCT USE OF I.S BUT PT TOO DROWSY AND REPORTING TOO MUCH PAIN. SAFETY MAINTAINED THROUGHOUT SHIFT. BED IN LOW POSITION, CALL LIGHT IN REACH. WILL ENDORSE POC TO NOC RN.
--- NOTE | 2018-11-09 19:08 | CONS ---
DATE OF ADMISSION: 11/09/2018 DATE OF CONSULTATION: 11/09/2018 Thank you very much for allowing me to evaluate the above patient who underwent lumbar back surgery. HISTORICAL EVENTS: As you well know, this patient underwent a left-sided L4-L5 microdiskectomy 10/11 17. He did well for six months after this and subsequently had the onset of low back pain and left g reater than right-sided leg pain. He underwent conservative therapy including anti-inflammatories, p hysical therapy and epidurals to no avail. Ultimately, he was evaluated by you and because of his co ntinued symptoms, he elected to proceed with surgery. Postoperatively in the recovery room, he has l ow back pain, but denies cough, wheezing, nausea, vomiting, or abdominal pain. PAST MEDICAL HISTORY: 1. Anxiety. 2. Gastroesophageal reflux. 3. History of hypertension. 4. Asthma. SOCIAL HISTORY: Heavy smoker. ALLERGIES: NONE. FAMILY HISTORY: To be reviewed later. MEDICATIONS: 1. Gabapentin 600 mg per day. 2. Hydrochlorothiazide 25 mg per day. 3. Losartan 100 mg per day. 4. Meloxicam 50 mg per day. 5. Nicoderm 21 mcg per day. 6. Omeprazole 20 mg per day. 7. ProAir 90 mcg twice a day. 8. Qvar 2 puffs 2 times per day. 9. Wellbutrin 150 XL per day. PHYSICAL EXAMINATION: GENERAL: [place] male in no acute distress. VITAL SIGNS: BP 128/78, pulse 72, respirations were 18. He was afebrile. EYES: Extraocular muscles were full. NOSE, MOUTH, AND THROAT: Normal. NECK: Supple. There was no jugular venous distention, thyroid enlargement or adenopathy. LUNGS: Clear. HEART: Rhythm regular, no murmur. No third or fourth sound. ABDOMEN: Nontender. Liver and spleen were not palpable. No mass or tenderness were noted. EXTREMITIES: No edema. Calves nontender. Pulses 2+. IMPRESSION: 1. Stable post-lumbar back surgery. 2. History of asthma. PLAN: 1. We will resume his bronchodilators. 2. We will evaluate for signs and symptoms of thromboembolic disease. 3. We will continue antihypertensive therapy and monitor BP throughout. Dictated By: AYAN HINTON/DOMINIQUE Conf#: [id number] [facility]#: [id number] CC: JUAREZ MAZARIEGOS MD;*[facility]*
[2018-11-09] MEDS ORDERED: LORAZEPAM 2 MG INJ IV PRN (21:30)
[2018-11-09] MEDS: MOMETASONE 0.24 GM INHALER INH SCH (21:48)
[2018-11-09] MEDS: LORAZEPAM 2 MG INJ IV PRN (22:59)
[2018-11-10 00:10] VITALS: BP 128/67; PULSE 102; RESP 20
[2018-11-10] MEDS: HYDROmorphONE 0.2 MG/ML PCA IV SCH (05:03)
[2018-11-10] MEDS: CEFAZOLIN 1 GM/50 ML (PMX) 50 ML IVPB SCH ×2 (05:03→11:41)
[2018-11-10] MEDS: PANTOPRAZOLE (EC) 40 MG TAB PO SCH (05:24)
[2018-11-10] MEDS: SOD CHLORIDE 0.9% 1,000 ML IV SCH ×3 (05:30→18:00)
--- NOTE | 2018-11-10 05:57 | NUR ---
Patient on continous pain most of the night. Frequent repositioning done.chief i dispatcher Dilaudid encourage to use. Slept last night after the Ativan given. Still on intermittent pain. To continue plan of care
[2018-11-10] MEDS ORDERED: HYDROmorphONE 0.2 MG/ML PCA IV SCH (06:30)
--- NOTE | 2018-11-10 06:30 | NUR ---
Change MAGNETIC PROSPECTOR Dilaudid settings and put a continous +basal patient woke up in severe pain. Will let Am Rn follow up regarding muscle relaxant as per patient having cramps
[2018-11-10 07:12] VITALS: BP 123/69; PULSE 99; RESP 17
--- NOTE | 2018-11-10 08:45 | NUR ---
PT NOTE Therapy day number 2 Subjective Current complaint of pain Pain Scale NUMERIC Pain Intensity 10 (0-10) Patient Stated Goal for Pain Relief 0 (0-10) Pain Level Comment back pain/surgical site pain Pre Treatment Vital Signs Stable Yes Exercise Assessment Label Bilat Lower Extremity Exercise Type Active Assist ROM Additional Exercise Comments supine AP, HS, unilateral hip ER/IR in semi-hooklying, seated EOB AP's Bed Mobility Sit to Supine Moderate Assist Sitting Tolerance 15 min Additional Mobility Comments received EOB, log rolling BTB, Mod-maxA Bed Mob Additional Gait Comments TBA, awaiting LSO brace, RN aware Additional Stairs Assist Comments TBA Static Sitting Balance Fair Dynamic Sitting Balance Fair Additional Balance Assessments Comments BUE support 2/2 pain Safety Judgement Fair Activity Tolerance Poor Equipment Present A pump Luke Catheter IV pump DENTAL BILLING SPECIALIST Additional Equipment Present trapeze Post Treatment Pain Intensity 10 0-10 Additional Post Treatment Comment See BElow PT Technical Record Comment PT NOTE S: Pt reports 10/10 surgical site pain, agreeable to PT in bed, denies dizziness. Cleared for PT per DAVID Berkowitz O: Pt received sitting EOB alert and oriented per tech record. Performed thera ex and bed mobility tr per tech record. Pt ed for spinal precautions and thera ex in bed. Awaiting LSO for OOB. Pt positioned for comfort in supine post tx with call light, DENTAL BILLING SPECIALIST and needs in reach, bed alarm armed, pt in no apparent distress. A: Pt amena tx poorly, limited by pain P: Cont POC
[2018-11-10] MEDS: DOCUSATE SODIUM 100 MG CAP PO SCH ×2 (09:37→21:20)
[2018-11-10] MEDS: MOMETASONE 0.24 GM INHALER INH SCH ×2 (09:37→21:20)
[2018-11-10] MEDS: LOSARTAN 50 MG TAB PO SCH (09:37)
--- NOTE | 2018-11-10 10:04 | CONS ---
Date/Time of Note Date/Time of Note DATE: 11/10/18 TIME: 09:59 Assessment/Plan Assessment/Plan Result Diagram: 11/10/18 0450 11/10/18 0450 Results 24hrs Laboratory Tests Test 11/10/18 04:50 Hemoglobin 12.5 L Hematocrit 37.3 L Sodium Level 134 L Potassium Level 3.7 Chloride Level 97 Carbon Dioxide Level 31 Anion Gap 6 Blood Urea Nitrogen 20 Creatinine 0.91 Est Glomerular Filtrat Rate mL/min > 60 Glucose Level 115 Calcium Level 8.1 L Consultation Date/Type/Reason Admit Date/Time Nov 09, 2018 at 06:23 Initial Consult Date 24 HR Interval Summary Free Text/Dictation S: 48 yo M POD#1 s/p L4-S1 ALIF w/ PSIF. No acute events over-night. Complains of pain over lumbar and abdominal incision. Tolerating clear diet. O: Vital Signs Date Temp Pulse Resp B/P (MAP) Pulse Ox O2 O2 Flow FiO2 Time Delivery Rate 11/10/18 98.0 99 17 123/69 96 Room Air 07:12 (87) 11/10/18 20 06:26 11/10/18 18 05:00 Gen: AAOx3, NAD Abdomen: soft, mild distension, No TTP Spine: 5/5 b/l TA/GS/EHL, +SILT L3-S1 Labs: Laboratory Tests Test 11/10/18 04:50 Hemoglobin 12.5 g/dl Hematocrit 37.3 % Sodium Level 134 mmol/L Potassium Level 3.7 mmol/L Chloride Level 97 mmol/L Carbon Dioxide Level 31 mmol/L Anion Gap 6 Blood Urea Nitrogen 20 mg/dl Creatinine 0.91 mg/dl Est Glomerular Filtrat Rate mL/min > 60 mL/min Glucose Level 115 mg/dl Calcium Level 8.1 mg/dl Current Medications Medications Dose Sig/Sully Start Time Status Last (Trade) Ordered Route PRN Stop Time Admin Dose Reason Admin Gelatin 1 sponge STK-MED 11/09/18 DC 11/09/18 (Gelatin ONCE .ROUTE 07:46 09:16 1 Size 100 11/09/18 07:47 SPONGE Sponge) Bupivacaine 30 ml STK-MED 11/09/18 DC 11/09/18 HCl/ ONCE .ROUTE 07:46 09:15 30 ML Epinephrine 11/09/18 07:47 Bitart (Marcaine 0.5%/ Epi (Sdv)) Cefazolin 2 gm STK-MED 11/09/18 DC 11/09/18 Sodium ONCE .ROUTE 07:46 09:15 1 GM (Ancef) 11/09/18 07:47 Thrombin 25,000 units STK-MED 11/09/18 DC 11/09/18 (Thrombin) ONCE .ROUTE 07:46 09:16 15,000 11/09/18 07:47 UNITS Heparin 30,000 unit STK-MED 11/09/18 DC 11/09/18 Sodium ONCE .ROUTE 07:46 09:19 30,000 (Porcine) 11/09/18 07:47 UNIT (Heparin (1000 Units/ml)) Bupivacaine 30 ml STK-MED 11/09/18 DC 11/09/18 HCl/ ONCE .ROUTE 12:55 14:02 20 ML Epinephrine 11/09/18 12:56 Bitart (Marcaine 0.5%/ Epi (Sdv)) 1 tab Q4H PRN 11/09/18 Acetaminophen PO PAIN 15:30 / LEVEL 1-5 Hydrocodone Bitart ([place] (5/325)) 2 tab Q4H PRN 11/09/18 Acetaminophen PO PAIN 15:30 / LEVEL 6-10 Hydrocodone Bitart ([place] (5/325)) Cefazolin 50 ml @ Q6 IVPB 11/09/18 11/10/18 Sodium 100 mls/hr 18:00 05:03 100 11/10/18 12:29 MLS/HR 10 mg Q4H PRN 11/09/18 Prochlorperaz PO NAUSEA 15:30 ine AND/OR (Compazine) VOMITING Ondansetron 4 mg Q6H PRN 11/09/18 HCl (Zofran IV NAUSEA 15:30 Inj) AND/OR VOMITING Al 15 ml Q4H PRN 11/09/18 Hydrox/Mg PO 15:30 Hydrox/Simeth CONSTIPATION icone (Mag-Al Plus) Docusate 100 mg BID PO 11/10/18 11/10/18 Sodium 09:00 09:37 100 MG (Colace) 650 mg Q4H PRN 11/09/18 Acetaminophen PO fever 15:30 (Tylenol Tab) IV Flush 3 ml PER 11/09/18 (NS 3 ml) PROTOCOL IV 15:30 Q4PCA IV 11/09/18 DC 11/10/18 Hydromorphone 15:30 05:03 6 MG HCl 11/10/18 06:25 (Dilaudid BARREL BRIDGE ASSEMBLER) Naloxone 0.2 mg Q2M PRN 11/09/18 HCl IV overdose 15:30 (Narcan) Fentanyl 100 mcg STK-MED 11/09/18 DC (Sublimaze) ONCE .ROUTE 15:11 11/09/18 15:12 Meperidine 25 mg STK-MED 11/09/18 DC HCl ONCE .ROUTE 15:11 (Demerol) 11/09/18 15:12 0.2 mg PACU PRN 11/09/18 DC Hydromorphone IV MILD PAIN 15:30 HCl LEVEL 1-3 11/09/18 20:00 (Dilaudid) 0.4 mg PACU PRN 11/09/18 DC 11/09/18 Hydromorphone IV MODERATE 15:30 16:19 0.4 MG HCl PAIN LEVEL 11/09/18 20:00 (Dilaudid) 4-6 0.6 mg PACU PRN 11/09/18 DC 11/09/18 Hydromorphone IV SEVERE 15:30 15:56 0.6 MG HCl PAIN LEVEL 11/09/18 20:00 (Dilaudid) 7-10 Fentanyl 25 mcg PACU ORDER 11/09/18 DC 11/09/18 (Sublimaze) PRN IV MILD 15:30 15:36 25 MCG PAIN LEVEL 11/09/18 20:00 1-3 Fentanyl 50 mcg PACU ORDER 11/09/18 DC 11/09/18 (Sublimaze) PRN IV 15:30 15:15 50 MCG MODERATE PAIN 11/09/18 20:00 LEVEL 4-6 Fentanyl 75 mcg PACU ORDER 11/09/18 DC (Sublimaze) PRN IV 15:30 SEVERE PAIN 11/09/18 20:00 LEVEL 7-10 Ondansetron 4 mg PACU ORDER 11/09/18 DC HCl (Zofran PRN IV 15:30 Inj) NAUSEA AND/OR 11/09/18 20:00 VOMITING 10 mg PACU ORDER 11/09/18 DC Metoclopramid PRN IV 15:30 e HCl NAUSEA AND/OR 11/09/18 20:00 (Reglan) VOMITING Labetalol 5 mg PACU ORDER 11/09/18 DC HCl PRN IV 15:30 (Labetalol) ELEVATED 11/09/18 20:00 BLOOD PRESSURE Hydralazine 5 mg PACU ORDER 11/09/18 DC HCl PRN IV 15:30 (Apresoline) ELEVATED 11/09/18 20:00 BLOOD PRESSURE Meperidine 25 mg PACU ORDER 11/09/18 DC 11/09/18 HCl PRN IV POST 15:30 15:13 25 MG (Demerol) OPERATIVE 11/09/18 20:00 SHIVERING 50 mg STK-MED 11/09/18 DC Diphenhydrami ONCE .ROUTE 16:44 ne HCl 11/09/18 16:45 (Benadryl) 25 mg ONCE PRN 11/09/18 Diphenhydrami IV ITCHING 17:00 ne HCl 11/10/18 16:59 (Benadryl) Sodium 1,000 ml @ [id number] IV 11/09/18 11/09/18 Chloride 80 mls/hr 17:00 17:42 80 MLS/HR Losartan 100 mg DAILY PO 11/10/18 11/10/18 Potassium 09:00 09:37 100 MG (Cozaar) Albuterol 2 puff QID PRN 11/09/18 (Ventolin INH wheezing 17:00 Hfa) Mometasone 1 puff BID INH 11/09/18 11/10/18 Furoate 21:00 09:37 1 PUFF (Asmanex) 40 mg DAILY@06 11/10/18 11/10/18 Pantoprazole PO 06:00 05:24 40 MG (Protonix Tab) Lorazepam 0.5 mg Q8H PRN 11/09/18 11/09/18 (Ativan) IV ANXIETY 21:30 22:59 0.5 MG Lorazepam 0.5 mg Q8H PRN 11/09/18 DC (Ativan) IV ANXIETY 21:30 11/09/18 22:21 Q4PCA IV 11/10/18 Hydromorphone 06:30 HCl (Dilaudid BARREL BRIDGE ASSEMBLER) 48 yo M POD#1 s/p L4-S1 ALIF w/ PSIF 1. Add Robaxin 500 mg PO Q 8 hrs prn muscle spasms 2. Continue BARREL BRIDGE ASSEMBLER w/ possible D/C tomorrow 3. Appreciate med recs 4. Advance to regular diet once passing gas 5. OOB w/ PT; Ok to get OOB w/ corset until brace arrives Exam/Review of Systems Vital Signs Vitals Vital Signs Date Temp Pulse Resp B/P (MAP) Pulse Ox O2 O2 Flow FiO2 Time Delivery Rate 11/10/18 98.0 99 17 123/69 96 Room Air 07:12 (87) 11/10/18 2.0 00:10 Intake and Output 11/09/18 11/09/18 11/10/18 1414:59 22:59 06:59 IntakeIntake Total 2490 ml 1010 ml OutputOutput Total 625 ml 1500 ml BalanceBalance 1865 ml -490 ml Medications Medications Current Medications Acetaminophen/ Hydrocodone Bitart ([place] (5/325)) 1 tab Q4H PRN PO PAIN LEVEL 1-5; Start 11/09/18 at 15:30 Acetaminophen/ Hydrocodone Bitart ([place] (5/325)) 2 tab Q4H PRN PO PAIN LEVEL 6-10; Start 11/09/18 at 15:30 Cefazolin Sodium 50 ml @ 100 mls/hr Q6 IVPB Last administered on 11/10/18at 05:03; Admin Dose 100 MLS/HR; Start 11/09/18 at 18:00; Stop 11/10/18 at 12:29 Prochlorperazine (Compazine) 10 mg Q4H PRN PO NAUSEA AND/OR VOMITING; Start 11/09/18 at 15:30 Ondansetron HCl (Zofran Inj) 4 mg Q6H PRN IV NAUSEA AND/OR VOMITING; Start 11/09/18 at 15:30 Al Hydrox/Mg Hydrox/Simethicone (Mag-Al Plus) 15 ml Q4H PRN PO CONSTIPATION; Start 11/09/18 at 15:30 Docusate Sodium (Colace) 100 mg BID PO Last administered on 11/10/18at 09:37; Admin Dose 100 MG; Start 11/10/18 at 09:00 Acetaminophen (Tylenol Tab) 650 mg Q4H PRN PO fever; Start 11/09/18 at 15:30 IV Flush (NS 3 ml) 3 ml PER PROTOCOL IV ; Start 11/09/18 at 15:30 Naloxone HCl (Narcan) 0.2 mg Q2M PRN IV overdose; Start 11/09/18 at 15:30 Diphenhydramine HCl (Benadryl) 25 mg ONCE PRN IV ITCHING; Start 11/09/18 at 17:00; Stop 11/10/18 at 16:59 Sodium Chloride 1,000 ml @ 80 mls/hr [id number] IV Last administered on 11/09/18at 17:42; Admin Dose 80 MLS/HR; Start 11/09/18 at 17:00 Losartan Potassium (Cozaar) 100 mg DAILY PO Last administered on 11/10/18at 09:37; Admin Dose 100 MG; Start 11/10/18 at 09:00 Albuterol (Ventolin Hfa) 2 puff QID PRN INH wheezing; Start 11/09/18 at 17:00 Mometasone Furoate (Asmanex) 1 puff BID INH Last administered on 11/10/18at 09:37; Admin Dose 1 PUFF; Start 11/09/18 at 21:00 Pantoprazole (Protonix Tab) 40 mg DAILY@06 PO Last administered on 11/10/18at 05:24; Admin Dose 40 MG; Start 11/10/18 at 06:00 Lorazepam (Ativan) 0.5 mg Q8H PRN IV ANXIETY Last administered on 11/09/18at 22:59; Admin Dose 0.5 MG; Start 11/09/18 at 21:30 Hydromorphone HCl (Dilaudid BARREL BRIDGE ASSEMBLER) Q4PCA IV ; Start 11/10/18 at 06:30 JUAREZ MAZARIEGOS MD Nov 10, 2018 10:04
--- NOTE | 2018-11-10 11:30 | NUR ---
PT NOTE Therapy day number 3 Subjective Denies pain Potential for pain Pain Scale NUMERIC Pain Intensity 0 (0-10) Patient Stated Goal for Pain Relief 0 (0-10) Pain Level Comment deneis pain pre-tx, 10/10 pain with BTB/repositioning post-tx Pre Treatment Vital Signs Stable Yes Exercise Assessment Label Bilat Lower Extremity Exercise Type Active Assist ROM Additional Exercise Comments supine AP, AAROM HS, within painfree ROM, bed mob tr with BR/log rolling Exercise Start Time 11:30 Exercise End Time 11:45 Total Exercise Time 15 min (8-127) Supine to Sit Minimum Assist Transfer Sit to Stand Ability Contact Guard Assist Bed Mobility Sit to Supine Minimum Assist Sitting Tolerance 5 min Additional Mobility Comments log rolling, LS corset donned/doffed for OOB w/ total A, FWW sit<>stand Gait Training Start Time 11:45 Gait Assist Levels Contact Guard Assist Assistive Devices Front Wheel Walker Ambulation Distance 120 feet Additional Gait Comments 80'FWW CGA +40'no AD CGA, very slow, decr step length/foot clear, BLE shaky Gait Training End Time 12:08 Total Gait Training Treatment Time 23 min (8-127) Additional Stairs Assist Comments TBA Static Sitting Balance Fair Dynamic Sitting Balance Fair Standing Static Balance Fair plus Dynamic Standing Balance Fair Additional Balance Assessments Comments BUE support in sitting 2/2 pain, FWW for standing Safety Judgement Fair Activity Tolerance Fair Equipment Present A pump Luke Catheter IV pump LINE PRODUCER Additional Equipment Present trapeze, LS corset Post Treatment Pain Intensity 10 0-10 Additional Post Treatment Comment See Below Total Treament Time 38 min (8-127) Total Minutes 38 Total Units 3 PT Technical Record Comment PT NOTE S: Pt premedicated with LINE PRODUCER, agreeable to PT in bed, denies dizziness. Cleared for PT per DAVID Berkowitz O: Pt received supine in bed asleep, easily roused, alert and oriented . Performed thera ex, bed mobility and transfer tr and gait tr per tech record above. Pt ed for spinal precautions. Per DAVID Berkowitz Pt okay for OOB with LS Corset. Pt reports decreased pain with standing/gait versus sitting and repositioning in bed. Performed gait tr with and without FWW, pt reports decreased pain without FWW. BTB via log rolling with Mary. Pt positioned for comfort post-tx in supine tx with call light, LINE PRODUCER and needs in reach, bed alarm armed, pt in no apparent distress. A: Pt amena tx fairly, increased mobility since AM tx, limited by pain P: Cont POC
[2018-11-10] MEDS: METHOCARBAMOL 500 MG TAB PO PRN ×2 (11:40→19:20)
[2018-11-10] MEDS: LORAZEPAM 2 MG INJ IV PRN ×2 (13:32→21:44)
--- NOTE | 2018-11-10 13:45 | NUR ---
PT Note Therapy day number 4 Subjective Current complaint of pain Pain Scale NUMERIC Pain Intensity 10 (0-10) Patient Stated Goal for Pain Relief 0 (0-10) Pain Level Comment pt has COAGULATION OPERATOR but does not want to use it. "It doesnt work" Exercise Assessment Label Bilat Lower Extremity Exercise Type Active Assist ROM Additional Exercise Comments heel slides, marches, ankle pumps Exercise Start Time 13:45 Exercise End Time 14:00 Total Exercise Time 15 min (8-127) Transfer Training Start Time 14:00 Supine to Sit Supervised Transfer Sit to Stand Ability Contact Guard Assist Bed Mobility Sit to Supine Minimum Assist Bed Transfer Ability Contact Guard Assist Chair Transfer Ability Contact Guard Assist Additional Mobility Comments sits with BUE d/t pain, Anna for sit-supine for LE and torso Transfer Training End Time 14:15 Total Transfer Training Time 15 min (8-127) Gait Training Start Time 14:15 Gait Assist Levels Contact Guard Assist Assistive Devices Front Wheel Walker Ambulation Distance 10 feet Gait Training End Time 14:25 Total Gait Training Treatment Time 10 min (8-127) Static Sitting Balance Fair plus Dynamic Sitting Balance Fair plus Standing Static Balance Fair Dynamic Standing Balance Fair Additional Balance Assessments Comments with FWW Safety Judgement Fair Activity Tolerance Poor Equipment Present A pump Luke Catheter IV pump COAGULATION OPERATOR Additional Equipment Present lumbar corset OOB Post Treatment Pain Intensity 10 0-10 Total Treament Time 40 min (8-127) Total Minutes 40 Total Units 3 PT Technical Record Comment S: Pt found supine in bed, agreeable to PT only after max encouragement from PT and RN. Pt just received medication prior to treatment. RN cleared pt for activity. O: Pt was seen for bed mobility, transfers, gait training with FWW. Pt demonstrated log roll for supine-sit supervised, and required Anna for sit-supine modified log roll for LE assistance and to adjust torso once in bed. Pt demonstrates LLE shaking after 5 ambulation. Ambulated 10' with FWW with very slow steps, flat foot contact, moderate UE support on the FWW, and VCs for breathing to manage pain. Assisted back to bed with call light nearby, bed alarm on. RN was present for treatment and received pt request for different pain medication. Pt demonstrated mumbled speech,which has been present for a few days according to RN. A: Pt continues to be limited by severe back pain and intermittent shaking in the LEs that presents as poor tolerance for activity and reluctance to engage in activity. P: Continue POC.
--- NOTE | 2018-11-10 14:00 | NUR ---
Patient refused to work with PT. Spoke with patient, patient is lethargic and mumbling, he agreed to do bed exercises. Per supercharge repair supervisor, patient had been crying so ativan was administered. Patient has not passed gas, continues on clear liquid diet. Addendum: 11/10/18 at 1402 by LYNETTE STRICKLAND RN Patient stating UROLOGY PHYSICIAN ASSISTANT not working for him, offered to go to [facility] per Dr. Sands's orders and d/c UROLOGY PHYSICIAN ASSISTANT, patient refused.
--- NOTE | 2018-11-10 14:36 | CONS ---
Date/Time of Note Date/Time of Note DATE: 11/10/18 TIME: 14:33 Assessment/Plan Assessment/Plan Hospital Course POD#1 s/p L4-S1 ALIF w/ PSIF. 1. Essential HTN - continue current regimen 2. Pain per pain service, continue MONUMENT LETTERER, wean as tolerated 3. Bowel regimen 4. DVT ppx - SCDs on during my visit 5. Home inhalers 6. OOB/PT Result Diagram: 11/10/18 0450 11/10/18 0450 Results 24hrs Laboratory Tests Test 11/10/18 04:50 Hemoglobin 12.5 L Hematocrit 37.3 L Sodium Level 134 L Potassium Level 3.7 Chloride Level 97 Carbon Dioxide Level 31 Anion Gap 6 Blood Urea Nitrogen 20 Creatinine 0.91 Est Glomerular Filtrat Rate mL/min > 60 Glucose Level 115 Calcium Level 8.1 L Consultation Date/Type/Reason Admit Date/Time Nov 09, 2018 at 06:23 Initial Consult Date Type of Consult IM Reason for Consultation Medical comanagement 24 HR Interval Summary Free Text/Dictation POD#1 s/p L4-S1 ALIF w/ PSIF. Pt on MONUMENT LETTERER, pain controlled at this time. Tolerating diet. BPs at goal. No SOB. Constitutional: no complaints Detailed Summary Respiratory: no complaints Cardiovascular: no complaints Musculoskeletal: other (appropriate pain at surgical site) Neurologic: no complaints Exam/Review of Systems Vital Signs Vitals Vital Signs Date Temp Pulse Resp B/P (MAP) Pulse Ox O2 O2 Flow FiO2 Time Delivery Rate 11/10/18 14 14:05 11/10/18 98.0 99 123/69 96 Room Air 07:12 (87) 11/10/18 2.0 00:10 Intake and Output 11/09/18 11/09/18 11/10/18 1515:00 23:00 07:00 IntakeIntake Total 2490 ml 1010 ml OutputOutput Total 625 ml 1500 ml BalanceBalance 1865 ml -490 ml Exam Constitutional: alert, oriented, other (resting comfortable) Head: normocephalic Neck: supple Respiratory: clear to auscultation Cardiovascular: regular rate and rhythm Gastrointestinal: soft Musculoskeletal: nl extremities to inspection Neurological: PRINT CONTROLLER II-XII intact, nl mental status Medications Medications Current Medications Acetaminophen/ Hydrocodone Bitart ([place] (5/325)) 1 tab Q4H PRN PO PAIN LEVEL 1-5; Start 11/09/18 at 15:30 Acetaminophen/ Hydrocodone Bitart ([place] (5/325)) 2 tab Q4H PRN PO PAIN LEVEL 6-10; Start 11/09/18 at 15:30 Prochlorperazine (Compazine) 10 mg Q4H PRN PO NAUSEA AND/OR VOMITING; Start 11/09/18 at 15:30 Ondansetron HCl (Zofran Inj) 4 mg Q6H PRN IV NAUSEA AND/OR VOMITING; Start 11/09/18 at 15:30 Al Hydrox/Mg Hydrox/Simethicone (Mag-Al Plus) 15 ml Q4H PRN PO CONSTIPATION; Start 11/09/18 at 15:30 Docusate Sodium (Colace) 100 mg BID PO Last administered on 11/10/18at 09:37; Admin Dose 100 MG; Start 11/10/18 at 09:00 Acetaminophen (Tylenol Tab) 650 mg Q4H PRN PO fever; Start 11/09/18 at 15:30 IV Flush (NS 3 ml) 3 ml PER PROTOCOL IV ; Start 11/09/18 at 15:30 Naloxone HCl (Narcan) 0.2 mg Q2M PRN IV overdose; Start 11/09/18 at 15:30 Diphenhydramine HCl (Benadryl) 25 mg ONCE PRN IV ITCHING; Start 11/09/18 at 17:00; Stop 11/10/18 at 16:59 Sodium Chloride 1,000 ml @ 80 mls/hr [id number] IV Last administered on 11/09/18at 17:42; Admin Dose 80 MLS/HR; Start 11/09/18 at 17:00 Losartan Potassium (Cozaar) 100 mg DAILY PO Last administered on 11/10/18at 09:37; Admin Dose 100 MG; Start 11/10/18 at 09:00 Albuterol (Ventolin Hfa) 2 puff QID PRN INH wheezing; Start 11/09/18 at 17:00 Mometasone Furoate (Asmanex) 1 puff BID INH Last administered on 11/10/18at 09:37; Admin Dose 1 PUFF; Start 11/09/18 at 21:00 Pantoprazole (Protonix Tab) 40 mg DAILY@06 PO Last administered on 11/10/18at 05:24; Admin Dose 40 MG; Start 11/10/18 at 06:00 Lorazepam (Ativan) 0.5 mg Q8H PRN IV ANXIETY Last administered on 11/10/18at 13:32; Admin Dose 0.5 MG; Start 11/09/18 at 21:30 Hydromorphone HCl (Dilaudid MONUMENT LETTERER) Q4PCA IV ; Start 11/10/18 at 06:30 Methocarbamol (Robaxin) 500 mg Q8H PRN PO muscle spasms Last administered on 11/10/18at 11:40; Admin Dose 500 MG; Start 11/10/18 at 10:30 NAZ MCCORMACK MD Nov 10, 2018 14:36
[2018-11-10 15:32] VITALS: BP 125/69; PULSE 90; RESP 18
--- NOTE | 2018-11-10 16:05 | NUR ---
PT Note Therapy day number 5 Subjective Current complaint of pain Pain Scale FACES Pain Intensity 10 (0-10) Patient Stated Goal for Pain Relief 0 (0-10) Pain Level Comment pt has AGRONOMY ADVISOR and has been receiving pain meds Pre Treatment Vital Signs Stable Yes Transfer Training Start Time 16:05 Supine to Sit Minimum Assist Transfer Sit to Stand Ability Minimum Assist Bed Mobility Sit to Supine Moderate Assist Bed Transfer Ability Minimum Assist Chair Transfer Ability Minimum Assist Transfer Training End Time 16:20 Total Transfer Training Time 15 min (8-127) Gait Training Start Time 16:20 Gait Assist Levels Minimum Assist Assistive Devices Front Wheel Walker Ambulation Distance 4 feet Additional Gait Comments Anna for FWW, very small, painful steps Gait Training End Time 16:30 Total Gait Training Treatment Time 10 min (8-127) Static Sitting Balance Fair Dynamic Sitting Balance Fair Standing Static Balance Fair Dynamic Standing Balance Fair Additional Balance Assessments Comments with FWW Safety Judgement Poor Activity Tolerance Poor Equipment Present A pump Luke Catheter IV pump AGRONOMY ADVISOR Additional Equipment Present lumbar corset OOB Post Treatment Pain Intensity 8 0-10 Additional Post Treatment Comment FACES pain post treatment, visibly less agitated Total Treament Time 25 min (8-127) Total Minutes 25 Total Units 2 PT Technical Record Comment S: Pt found sitting EOB at start of treatment in severe back pain, pt wanted to stand. RN had cleared pt for activity. O: Lumbar corset donned totalA for all OOB. Pt visibly agitated in bed at start of treatment. Assisted to standing, pt used the AGRONOMY ADVISOR, and ambulated 4' with slow, small steps and heavy support on BUE. Breathing cues to help manage pain. Standing break for >5 mins. ModA required for sit-supine log roll to assist BLE and adjust his torso on the bed. Pt returned to bed with call light and AGRONOMY ADVISOR nearby, bed alarm on, visibly more calm than at start of treatment. RN informed of pt response to activity. A: Pt continues to be severely limited by back pain and has poor tolerance to activity, pm worse than am. However transfers to EOB and standing, along with AGRONOMY ADVISOR, appear to improve his pain as pt was noticeably more calm after treatment. P: Continue POC. Continue to practice log rolling sit-supine.
[2018-11-10 19:25] VITALS: BP 125/60; PULSE 90; RESP 20
--- NOTE | 2018-11-10 19:58 | NUR ---
EOSS Patient labile throughout shift, lethargic to crying to agitated, impulsive. Dressings to back and abdomen inatact, dry. Afebrile during shift, last dose of Ancef given. Complained of muscle spasms, robaxin given without relief, second dose given after 7:00 pm, endorsed to night RN to assess. Complained of agitation, Ativan given and patient lethargic at times but was able to get up with physical therapy and ambulate with walker in his room from bed to window and back. Bowel sounds active, not passing gas. Per Dr. Yepez, patient to remain on clear liquid diet until he passes gas, endorsed to night RN. Luke draining clear light vincent urine. IS at bedside, encouraged patient to use, he desated after ativan was given and he was sleeping, O2 applied at 2lpm prn, patient removed, he was able to maintain saturation on room air 3 hours after Ativan administered. Bed alarm used and more than hourly rounding performed to maintain patient safety because patient does not call for assistance and is impulsive with his movements: At 6:52, patient was found on side of bed, rocking back and forth and stating he needed to move. His left hand was flexed at the wrist which kinked his IV and there was fluid buildup around IV site. IV fluids and AFFIRMATIVE ACTION SPECIALIST stopped. IV with blood return but site swollen and tender. Attempted to start new IV but unable due to patient agitation, he could not sit still. It was too early to administer Ativan or Robaxin at that time. Heart rate ranging from 80's to 112 during this time. With aid of GARAGE HELPER, attempted to move patient to a chair since he said his bed was uncomfortable, applied corset and patient stood up with walker and two person assist, then he refused to sit down due to concern of pain from incision and muscle spasms. After ten minutes patient agreed to try sitting down. [place] and Robaxin were given at this time. GARAGE HELPER remained with patient for safety, Dr. Sands was notified of situation and and new orders for more frequent ativan, d/c of AFFIRMATIVE ACTION SPECIALIST, start of Percocet, and request for Dr. Lombardo to evaluate patient for ETOH vs drug abuse due to report from previous shift's nurse that patient had heroin use history-patient and his spouse denied this to Dr. Sands. present during encounter. Endorsed to security shift supervisor RN Ene.
[2018-11-10] MEDS: HYDROmorphONE 0.5 MG/0.5 ML SYG IV PRN (21:44)
[2018-11-11] MEDS: OXYCODONE/ACETAMINOPHEN (10/325) TAB PO PRN ×2 (00:53→07:19)
[2018-11-11 02:10] VITALS: BP 131/69; PULSE 110; RESP 20
--- NOTE | 2018-11-11 05:47 | NUR ---
EOSS: DURING START OF SHIFT, PATIENT VERY ANXIOUS, CRYING, SITTING IN A CHAIR C/O PAIN, AT BEDSIDE MASSAGING PATIENT'S RIGHT LEG. AM RN JUST GAVE PAIN MEDICATION. INFORMED NEEDS TO LET PAIN MEDICINE WORK. OFFERED IF HE WANTED TO GO BACK TO BED TO FEEL BETTER AND AGREED. HELPED BACK TO BED, ALARM ON. PATIENT WAS ABLE TO TAKE A NAP. AFTER FEW HRS, PATIENT CALLED LOOKING FOR HIS , ANXIOUS, CRYING AGAIN IN PAIN. GAVE DILAUDID AND ATIVAN IV, FELL ASLEEP. CAME BACK WITH THEIR SON, PATIENT AWAKE BUT CALM, NO C/O PAIN. AROUND 12:30AM, WENT HOME WITH SON. PATIENT KNOWS THAT IS LEAVING AND SHE WILL BE BACK, PATIENT REMAINED CALM. AT 1:00AM, PATIENT BECAME AGITATED, LOOKING FOR HIS , STATING HE'S UNCOMFORTABLE, WHY WE'RE DETAINING HIM, NOBODY LISTENS TO HIM AND NOBODY HELPS HIM. EXPLAINED TO PATIENT THAT HE JUST HAD SX, AND HE'S IN THE HOSPITAL. WILL COME BACK AND WE'RE HELPING HIM. PATIENT CONTINUES TO CRY, WANTED TO TALK TO . HELPED CONTACT BUT PATIENT REMAINED ANXIOUS. HELPED SAT ON THE CHAIR, PUT CORSET ON. GAVE ENDOCET. PLACED A CALL TO , SHE SAID SHE'S ALREADY IN THE PARKING LOT. PATIENT CALMED DOWN WHEN CAME. F/C REMAINED INTACT, NO ORDERS TO REMOVE. DRESSING ON ABDOMEN AND BACK C/D/I. NEEDS ATTENDED, CALL LIGHT WITHIN REACH, BED ALARM ON. WILL CONTINUE WITH POC.
[2018-11-11] MEDS: PANTOPRAZOLE (EC) 40 MG TAB PO SCH (06:00)
[2018-11-11] MEDS: SOD CHLORIDE 0.9% 1,000 ML IV SCH ×2 (06:30→20:15)
[2018-11-11] MEDS: METHOCARBAMOL 500 MG TAB PO PRN ×2 (07:19→22:43)
[2018-11-11] MEDS: HYDROmorphONE 0.5 MG/0.5 ML SYG IV PRN ×4 (08:18→20:36)
[2018-11-11 08:27] VITALS: BP 116/61; PULSE 107; RESP 18
--- NOTE | 2018-11-11 09:35 | NUR ---
PT NOTE [facility] Patient: Alfonzo Montiel : 1970 Age/Sex: 48/M Unit#: [id number] Room/Bed: 418/A User: Jude May PT Date: 11/11/18 08:40 Type: PT Technical Record Therapy day number 4 Subjective Current complaint of pain Pain Scale NUMERIC Pain Intensity 10 (0-10) Patient Stated Goal for Pain Relief 0 (0-10) Pain Level Comment back pain Pre Treatment Vital Signs Stable Yes Transfer Training Start Time 08:40 Supine to Sit Minimum Assist Transfer Sit to Stand Ability Minimum Assist Bed Mobility Sit to Supine Moderate Assist Bed Transfer Ability Minimum Assist Chair Transfer Ability Minimum Assist Additional Mobility Comments log-roll Transfer Training End Time 09:05 Total Transfer Training Time 25 min (8-127) Gait Training Start Time 09:05 Gait Assist Levels Minimum Assist Assistive Devices Front Wheel Walker Ambulation Distance 12 feet Additional Gait Comments antalgic steps, maintaining B knee flexion, very slow smiley, short steps Gait Training End Time 09:35 Total Gait Training Treatment Time 30 min (8-127) Static Sitting Balance Fair plus Dynamic Sitting Balance Fair plus Standing Static Balance Fair plus Dynamic Standing Balance Fair Additional Balance Assessments Comments with FWW Safety Judgement Fair Activity Tolerance Poor Equipment Present A pump Additional Equipment Present LS CORSET (RN TO ORDER LSO) Post Treatment Pain Intensity 10 0-10 Additional Post Treatment Comment SEE BELOW Total Treament Time 55 min (8-127) Total Minutes 55 Total Units 4 PT Technical Record Comment S: Pt reported significant back pain, reports he cannot get comfortable O: DAVID Morrison cleared pt for PT session. Pt received semi-supine in bed, appears restless, friend at bedside. Pt participated in interventions above, donning LS corset with all OOB activities. RN in process of ordering LSO. Noted with gait, short step length B, very slow smiley, labored, antalgic gait, increased UE support, maintaining slight B knee flexion. Pt educated in breathing techniques with movements to reduce pain. Once returned to bed pt requested pillow under knees for comfort, bed alarm activated, no signs of distress. RN notified of pt's status. A: Pt continues to be limited in mobility due to pain, requiring min-modA for bed mobility tasks and amb total of 12' this date, gait distance limited due to poor activity tolerance 2/2 pain P: Continue c PT POC
[2018-11-11] MEDS: DOCUSATE SODIUM 100 MG CAP PO SCH ×2 (10:31→22:19)
[2018-11-11] MEDS: LOSARTAN 50 MG TAB PO SCH (10:32)
[2018-11-11] MEDS: LORAZEPAM 2 MG INJ IV PRN ×2 (10:37→23:14)
--- NOTE | 2018-11-11 12:23 | CONS ---
Date/Time of Note Date/Time of Note DATE: 11/11/18 TIME: 12:20 Assessment/Plan Assessment/Plan Hospital Course POD#2 s/p L4-S1 ALIF w/ PSIF. 1. Essential HTN - continue current regimen 2. Pain per pain service, off WASTEWATER TREATMENT SUPERVISOR 3. Bowel regimen ordered 4. DVT ppx - SCDs on during my visit 5. Nicotine patch ordered () 6. Advance diet per surgery 7. Repeat BMP, if sodium lower tomorrow will need free water restriction 8. OOB/PT Result Diagram: 11/11/18 0858 11/11/18 0858 Results 24hrs Laboratory Tests Test 11/11/18 08:58 White Blood Count 12.0 H Red Blood Count 3.92 L Hemoglobin 12.0 L Hematocrit 36.0 L Mean Corpuscular Volume 91.8 Mean Corpuscular Hemoglobin 30.6 Mean Corpuscular Hemoglobin Concent 33.3 Red Cell Distribution Width 12.5 Platelet Count 211 Mean Platelet Volume 9.9 Immature Granulocytes % 0.400 Neutrophils % 70.7 Lymphocytes % 19.7 Monocytes % 8.4 Eosinophils % 0.3 Basophils % 0.5 Nucleated Red Blood Cells % 0.0 Immature Granulocytes # 0.050 H Neutrophils # 8.5 H Lymphocytes # 2.4 Monocytes # 1.0 H Eosinophils # 0.0 Basophils # 0.1 Nucleated Red Blood Cells # 0.0 Sodium Level 132 L Potassium Level 3.8 Chloride Level 97 Carbon Dioxide Level 31 Anion Gap 4 L Blood Urea Nitrogen 14 Creatinine 0.68 Est Glomerular Filtrat Rate mL/min > 60 Glucose Level 91 Calcium Level 8.3 L Consultation Date/Type/Reason Admit Date/Time Nov 09, 2018 at 06:23 Initial Consult Date Type of Consult IM Requesting Provider: JUAREZ MAZARIEGOS MD 24 HR Interval Summary Free Text/Dictation No events overnight. No BM. Still on clear liquid diet. Sleeping comfortably on my visit. Asking for nicotine patch Constitutional: no complaints, other (asking for diet to be advanced, hungry) Detailed Summary Respiratory: no complaints Cardiovascular: no complaints Gastrointestinal: constipation Musculoskeletal: other (pain at surgical site, tolerable) Exam/Review of Systems Vital Signs Vitals Vital Signs Date Temp Pulse Resp B/P (MAP) Pulse Ox O2 O2 Flow FiO2 Time Delivery Rate 11/11/18 97.5 107 18 116/61 97 08:27 (79) 11/11/18 Room Air 02:10 11/10/18 2.0 00:10 Intake and Output 11/10/18 11/10/18 11/11/18 1515:00 23:00 07:00 IntakeIntake Total 750 ml 760 ml OutputOutput Total 1000 ml BalanceBalance 750 ml -240 ml Exam Constitutional: alert, oriented Head: normocephalic Respiratory: clear to auscultation Cardiovascular: regular rate and rhythm Extremities: other (no edema) Medications Medications Current Medications Prochlorperazine (Compazine) 10 mg Q4H PRN PO NAUSEA AND/OR VOMITING; Start 11/09/18 at 15:30 Ondansetron HCl (Zofran Inj) 4 mg Q6H PRN IV NAUSEA AND/OR VOMITING; Start 11/09/18 at 15:30 Al Hydrox/Mg Hydrox/Simethicone (Mag-Al Plus) 15 ml Q4H PRN PO CONSTIPATION Last administered on 11/11/18at 10:34; Admin Dose 15 ML; Start 11/09/18 at 15:30 Docusate Sodium (Colace) 100 mg BID PO Last administered on 11/11/18at 10:31; Admin Dose 100 MG; Start 11/10/18 at 09:00 Acetaminophen (Tylenol Tab) 650 mg Q4H PRN PO fever; Start 11/09/18 at 15:30 IV Flush (NS 3 ml) 3 ml PER PROTOCOL IV ; Start 11/09/18 at 15:30 Naloxone HCl (Narcan) 0.2 mg Q2M PRN IV overdose; Start 11/09/18 at 15:30 Sodium Chloride 1,000 ml @ 80 mls/hr [id number] IV Last administered on 11/10/18at 09:35; Admin Dose 80 MLS/HR; Start 11/09/18 at 17:00 Losartan Potassium (Cozaar) 100 mg DAILY PO Last administered on 11/11/18at 10:32; Admin Dose 100 MG; Start 11/10/18 at 09:00 Albuterol (Ventolin Hfa) 2 puff QID PRN INH wheezing; Start 11/09/18 at 17:00 Mometasone Furoate (Asmanex) 1 puff BID INH Last administered on 11/10/18at 21:20; Admin Dose 1 PUFF; Start 11/09/18 at 21:00 Pantoprazole (Protonix Tab) 40 mg DAILY@06 PO Last administered on 11/10/18at 05:24; Admin Dose 40 MG; Start 11/10/18 at 06:00 Methocarbamol (Robaxin) 500 mg Q8H PRN PO muscle spasms Last administered on 11/11/18at 07:19; Admin Dose 500 MG; Start 11/10/18 at 10:30 Lorazepam (Ativan) 0.5 mg Q6 PRN IV ANXIETY Last administered on 11/11/18at 10:37; Admin Dose 0.5 MG; Start 11/10/18 at 19:30 Oxycodone/ Acetaminophen (Endocet (10/ 325)) 1 tab Q4H PRN PO MODERATE PAIN LEVEL 4-6 Last administered on 11/11/18at 07:19; Admin Dose 1 TAB; Start 11/10/18 at 20:00 Hydromorphone HCl (Dilaudid) 0.5 mg Q3H PRN IV SEVERE PAIN LEVEL 7-10 Last administered on 11/11/18at 08:18; Admin Dose 0.5 MG; Start 11/10/18 at 20:00 NAZ MCCORMACK MD Nov 11, 2018 12:23
[2018-11-11] MEDS: NICOTINE (21 MG/24 HR) PATCH TRANSDERM SCH (14:41)
[2018-11-11] MEDS: oxyCODONE (CR) 10 MG TAB [oxyCONTIN] PO SCH ×2 (14:42→22:18)
[2018-11-11 14:53] VITALS: BP 120/81; PULSE 121; RESP 16
--- NOTE | 2018-11-11 15:20 | NUR ---
PT NOTE Therapy day number 4 Subjective Current complaint of pain Pain Scale FACES Pain Intensity 9 (0-10) Patient Stated Goal for Pain Relief 0 (0-10) Pain Level Comment back pain Transfer Training Start Time 14:41 Supine to Sit Maximum Assist Transfer Sit to Stand Ability Moderate Assist Bed Mobility Sit to Supine Moderate Assist Sitting Tolerance 15 min Additional Mobility Comments logroll, scooting up in bed with maxA Transfer Training End Time 15:20 Total Transfer Training Time 39 min (8-127) Gait Assist Levels Moderate Assist Assistive Devices Front Wheel Walker Ambulation Distance 1 feet Additional Gait Comments side-stepping towards HOB, short step length, verbal and manual cues Static Sitting Balance Fair Dynamic Sitting Balance Fair minus Standing Static Balance Fair minus Dynamic Standing Balance Poor plus Additional Balance Assessments Comments with FWW Safety Judgement Fair Activity Tolerance Poor Equipment Present A pump Luke Catheter Additional Equipment Present LS CORSET (RN REPORTS LSO TO BE DELIEVERED LATER IN PM) Post Treatment Pain Intensity 10 0-10 Additional Post Treatment Comment SEE BELOW Total Treament Time 39 min (8-127) Total Minutes 39 Total Units 3 PT Technical Record Comment S: Pt continues to report back pain, anxious, nearly crying at times O: DAVID Morrison cleared pt for PT session. Pt received supine in bed donning LS corset. RN reports LSO to be delivered later in pm. Pt restless, reports pain, states he wants to try to get up. Pt educated in potential of mobility and changing positions in reducing pain. Pt participated in interventions above. Noted pt required greater assistance with all mobility this session. Pt returned to bed, all needs in reach, no signs of distress, bed alarm activated. A: Pt limited more this session than am session due to back pain/discomfort, unable to attempt ambulation due to increased pain. P: Continue c PT POC
[2018-11-11] MEDS: MOMETASONE 0.24 GM INHALER INH SCH ×2 (16:14→22:19)
--- NOTE | 2018-11-11 20:09 | NUR ---
EOSS: Pt moaning and writhing in pain in AM, IV dilaudid x2, ativan, endocet, and a muscle relaxant had been administered but pt reported no relief. Dr. Sands requested pain consult. New orders received from Dr. Hargrove. Following new regimen pt primarily slept and reported pain decreased to 9/10. Pt ambulated to toilet but was unable to have BM, milk of mag administered for constipation. Luke still in place, draining light vincent urine. LSO brace delivered. PT worked w/ pt. Dressing remains c/d/i. Pt was tachycardic during shift, Dr. Sands and Dr. Quach aware, no new orders. Pt denied passing gas, clear liquid diet tolerated. Call light w/in reach and bed alarm on. SCDs on.
[2018-11-11 20:16] VITALS: BP 126/75; PULSE 101; RESP 18
--- NOTE | 2018-11-12 01:10 | NUR ---
RN NOTES: PATIENT C/O MUSCLE SPASM FROM LOWER BACK TO LOWER LEGS. WILL CALL DR. MAZARIEGOS TO OBTAIN ORDER .
--- NOTE | 2018-11-12 01:15 | NUR ---
RN NOTES: PATIENT WANTS TO SIT AT EDGE OF BED FOR COMFORT. PATIENT STATED " I WANT TO SIT UP, I WANT TO SIT UP" . ASSISTED PATIENT TO SIT AT EDGE OF BED WITH 2 STAFF ASSIST. BACK BRACE PLACED ORDERED. PATIENT STARTED TO BE RESTLESS AND STATED" I WANT TO WALK , LET ME WALK AWAY AND I'LL CALL 911". SAFETY INSTRUCTIONS WERE REINFORCED. BUT PATIENT IS NON-COMPLIANT. SECURITY BEEN CALLED AND CAME AT BEDSIDE FOR SAFETY.
--- NOTE | 2018-11-12 01:20 | NUR ---
RN NOTES: PATIENT BEEN ASSISTED TO SIT UP ON A WHEEL CHAIR, WITH STAFF AND SECURITY. PATIENT'S AT BEDSIDE FOR SUPPORT. PATIENT CONTINUE TO BE RESTLESS AND ANXIOUS.
--- NOTE | 2018-11-12 01:25 | NUR ---
RN NOTES: PLACED A CALL TO DR. MAZARIEGOS, MADE AWARE OF PATIENT'S C/O SPASM , RESTLESSNESS AND ANXIETY. MD BEEN UPDATED WITH ALL MEDICATIONS THAT BEEN ADMINISTERED. PATIENT AND HIS INSISTED TO TALK TO MD. PATIENT AND HIS TALKED TO MD. SECURITY , WATCH CRYSTAL CUTTER , MELISSA CAMPOS AND PRIMARY RN REMAIN AT BEDSIDE.
--- NOTE | 2018-11-12 01:45 | NUR ---
RN NOTES: PATIENT REMAINED AT WHEELCHAIR , WHEELED AROUND THE HALLWAY PATIENT HAD REQUESTED. ACCOMPANIED BY AND MELISSA CAMPOS. FALL PRECAUTION OBSERVED.
[2018-11-12 02:00] VITALS: BP 116/70; PULSE 119; RESP 18
[2018-11-12] MEDS ORDERED: DIAZEPAM 5 MG TAB PO PRN ×2 (02:00→14:30)
[2018-11-12] MEDS: HYDROmorphONE 0.5 MG/0.5 ML SYG IV PRN ×2 (02:05→10:00)
--- NOTE | 2018-11-12 02:10 | NUR ---
RN NOTES: PATIENT STILL AT HALLWAY ON WHEELCHAIR. PATIENT C/O BACK PAIN AND REQUESTED PAIN MEDICATION. OFFERED PATIENT TO RETURN TO BED ,THEN PAIN MEDICATION BE GIVEN. PATIENT RESPONDED " DON'T GIVE THAT SHIT, I'M NOT GOING ANYWHERE. I'M IN PAIN, GIVE ME PAIN MEDICATION". PATIENT WAS APPROACHED CALMLY AND WHEELED HIM IN BACK TO HIS ROOM. DILAUDID 1 MG IVP GIVEN WHILE ON WHEELCHAIR REQUESTED. PATIENT EVENTUALLY AGREED TO BE BACK ON BED. ASSISTED WITH 3 STAFF, PLACED PATIENT BACK TO BED WITH BACK PRECAUTION OBSERVED. PATIENT REFUSED HIS IV BE PLACED BACK AT THIS TIME.
--- NOTE | 2018-11-12 02:40 | NUR ---
RN NOTES: PATIENT STARTED TO LOOK FOR HIS AND BECAME VERY ANXIOUS. PATIENT STARTING TO YELL , STATED" YOU CAN NOT FORCE ME TO STAY", "LET ME GO". SEVERAL PHONE CALLS BUT NO CONTACT TO HIS . PATIENT RESTLESS AND GETTING OOB WANTS TO STAND BY HIMSELF. SAFETY INSTRUCTIONS REINFORCED. SECURITY BEEN CALLED AND CAME AT THE BEDSIDE FOR SAFETY.
--- NOTE | 2018-11-12 02:50 | NUR ---
RN NOTES: PATIENT'S CAME AT BEDSIDE. ASSISTED PATIENT TO BE UP IN WHEELCHAIR PATIENT REQUESTED. PATIENT WHEELED AROUND THE ZAIDI WITH AND BOTTLE INSPECTOR. EXPLAINED TO THAT MD HAD ORDERED SITTER FOR SAFETY. PATIENT AND HAD REFUSED TO HAVE A SITTER. NURSE ACCESSORIES REPAIRER MADE AWARE.
[2018-11-12] MEDS ORDERED: LORAZEPAM 1 MG TAB PO PRN (03:00)
--- NOTE | 2018-11-12 03:00 | NUR ---
RN NOTES: PATIENT BEEN BACK TO BED. REFUSED IVF TO BE CONNECTED. REFUSED SITTER. BED ALARM ACTIVATED. AT BEDSIDE. PATIENT CALM AT THIS TIME.
--- NOTE | 2018-11-12 05:20 | NUR ---
RN NOTES: PATIENT WOKE UP AND STARTED TO BE RESTLESS. FALL PRECAUTION OBSERVED. PATIENT STARTED YELLING AND STATING "FUCK YOU ALL, I WANT TO GET UP". PATIENT UNCOOPERATIVE TO SAFETY INSTRUCTIONS. SECURITY BEEN CALLED AND AT BEDSIDE. CLOSE MONITORING RENDERED.
[2018-11-12] MEDS: LORAZEPAM 2 MG INJ IV PRN (05:25)
[2018-11-12] MEDS: PANTOPRAZOLE (EC) 40 MG TAB PO SCH ×2 (06:00→08:34)
[2018-11-12] MEDS ORDERED: DIAZEPAM 5 MG/ML SYG IV PRN (06:30)
--- NOTE | 2018-11-12 06:59 | NUR ---
EOSS: PATIENT BEEN RESTLESS AND NON- COMPLIANT TO SAFETY INSTRUCTIONS DURING THE SHIFT. PATIENT HAD SEVERAL INCIDENT OF GETTING OOB AND WANTING TO LEAVE THE UNIT. PATIENT BEEN ASSESSED FOR PAIN. PATIENT BEEN MEDICATED WITH DILAUDID 1 MG IVP FOR PAIN. PATIENT BEEN MEDICATED WITH ATIVAN 0.5 [address] IVP FOR ANXIETY. DR[address] MAZARIEGOS BEEN NOTIFIED. DR. MCCORMACK BEEN NOTIFIED. AT BEDSIDE FOR SUPPORT. PATIENT BEEN ASSISTED FOR WHEELCHAIR USE , BEEN WHEELED AROUND THE HALLWAY ACCOMPANIED BY BETH TORRES PATIENT REQUESTED TO EASE ANXIETY. ABDOMINAL DSG AND BACK DSG REMAIN CDI. FULLER IN PLACE. IVF NOT INFUSING AT THIS TIME, PATIENT HAD REFUSED. BED ALARM ACTIVATED. HOURLY ROUNDING RENDERED. FALL PRECAUTION OBSERVED. SECURITY AT DOORSTEP FOR SAFETY.
--- NOTE | 2018-11-12 07:00 | NUR ---
RN NOTES: PATIENT CURRENTLY ON BED. CALM AND ASLEEP.
[2018-11-12] MEDS: SOD CHLORIDE 0.9% 1,000 ML IV SCH ×2 (07:30→12:22)
[2018-11-12 07:35] VITALS: BP 139/75; PULSE 104; RESP 16
[2018-11-12] MEDS ORDERED: LORAZEPAM 2 MG INJ IV PRN ×2 (08:00→13:00)
[2018-11-12] MEDS: DOCUSATE SODIUM 100 MG CAP PO SCH (08:28)
[2018-11-12] MEDS: LOSARTAN 50 MG TAB PO SCH (08:29)
[2018-11-12] MEDS: MOMETASONE 0.24 GM INHALER INH SCH (08:29)
[2018-11-12] MEDS: NICOTINE (21 MG/24 HR) PATCH TRANSDERM SCH (08:30)
[2018-11-12] MEDS: DIAZEPAM 5 MG/ML SYG IV PRN ×2 (08:36→15:15)
--- NOTE | 2018-11-12 09:18 | NUR ---
PT NOTE Therapy day number 5 Subjective Current complaint of pain Pain Scale NUMERIC Pain Intensity 10 (0-10) Patient Stated Goal for Pain Relief 10 (0-10) Pain Level Comment back pain/anterior abdom surgical site pain Pre Treatment Vital Signs Stable Yes Exercise Assessment Label Bilat Lower Extremity Additional Exercise Comments log rolling sup<>sit with MaxA Transfer Training Start Time 09:18 Supine to Sit Maximum Assist Transfer Sit to Stand Ability Moderate Assist Bed Mobility Sit to Supine Maximum Assist Sitting Tolerance 10 min Additional Mobility Comments FWW for STS, pt c/o increased pain with sitting/standing Transfer Training End Time 09:41 Total Transfer Training Time 23 min (8-127) Gait Assist Levels Moderate Assist Assistive Devices Front Wheel Walker Ambulation Distance 1 feet Additional Gait Comments shuffling steps from/to bed, flexed post, decreas hip/knee extens in stance Static Sitting Balance Fair Dynamic Sitting Balance Fair minus Standing Static Balance Fair minus Dynamic Standing Balance Poor plus Additional Balance Assessments Comments with FWW Safety Judgement Fair Activity Tolerance Poor Equipment Present A pump Luke Catheter Additional Equipment Present LSO brace Post Treatment Pain Intensity 10 0-10 Additional Post Treatment Comment See Below Total Treament Time 23 min (8-127) Total Minutes 23 Total Units 2 PT Technical Record Comment PT NOTE S: Pt c/o abdominal/surgical site pain, agitated and emotional, premedicated for pain, agreeable to PT. Cleared for PT per DAVID Morrison. RN states pt was combative overnight, had to call security. O: Pt received R sidelying in bed asleep, easily roused, alert and appropriate, distressed re pain. Performed bed mobility and transfer tr and gait tr per tech record above with FWW Max to ModA. Pt ed for proper breathing tecniques during transfers and gait to decrease pain. Pt reports increased pain with standing/gait, unsteady, requiring modA to advance LLE for return to bed. BTB via log rolling with MaxA due to pain. Pt positioned for comfort post-tx in supine tx with call light, needs in reach, sitter present in room, bed alarm armed. A: Pt amena tx poorly, limited by pain P: Cont POC
[2018-11-12] MEDS: oxyCODONE (CR) 10 MG TAB [oxyCONTIN] PO SCH (10:03)
--- NOTE | 2018-11-12 11:07 | NUR ---
PT NOTE Addendum: 11/12/18 at 1336 by NANCY BLEVINS RAIL WALKER Therapy day number 5 Subjective Current complaint of pain Pain Scale NUMERIC Pain Intensity 5 (0-10) Patient Stated Goal for Pain Relief 5 (0-10) Pain Level Comment back/surgical site Exercise Assessment Label Bilat Lower Extremity Additional Exercise Comments log rolling sup>sit with SBA Gait Training Start Time 11:07 Gait Assist Levels Contact Guard Assist Assistive Devices Front Wheel Walker Ambulation Distance 100 feet Additional Gait Comments +10'no AD CGA; w/ AD increased up trap activat/reliance on FWW despite VC Gait Training End Time 11:31 Total Gait Training Treatment Time 24 min (8-127) Static Sitting Balance Fair plus Dynamic Sitting Balance Fair plus Standing Static Balance Fair plus Dynamic Standing Balance Fair Additional Balance Assessments Comments With FWW Safety Judgement Fair Activity Tolerance Fair Equipment Present A pump Luke Catheter IV pump Additional Equipment Present LSO brace Post Treatment Pain Intensity 4 0-10 Additional Post Treatment Comment See Below Total Treament Time 24 min (8-127) Total Minutes 24 Total Units 2 PT Technical Record Comment PT NOTE S: Pt premedicated with dilaudid, agreeable to PT, denies dizziness. Cleared for PT per DAVID Morrison. O: Pt received supine in bed, alert and oriented. Donned LSO brace with max assist. Performed bed mobility, transfer tr and gait tr per tech record above. Performed Supine to sit SBA using BR. Sit to stand CGA with FWW. Pt ed for imrpoved gait mechanics, fall prevention and pacing. Pt reports decreased pain with sitting/standing/gait versus lying in bed. Performed gait tr with and without FWW, pt with imrpoved upright posture with AD, however continues to benefit from FWW due to unsteadiness. Pt with reciprocal gait, dcreased smiley, decreased hip and knee extension during BE stance, antalgic, no LOB/buckling. Pt reports decreased pain during gait without FWW. Pt left sitting at EOB with LSO brace in place, sitter present in room, pt in no apparent distress. RN updated re pt status. A: Pt amena tx fairly, increased mobility since AM tx, limited by pain P: Cont POC
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
--- NOTE | 2018-11-12 11:28 | CONS ---
Date/Time of Note Date/Time of Note DATE: 11/12/18 TIME: 11:24 Assessment/Plan Assessment/Plan Result Diagram: 11/11/18 0858 11/12/18 0938 Results 24hrs Laboratory Tests Test 11/12/18 09:38 Sodium Level 134 L Potassium Level 3.5 Chloride Level 97 Carbon Dioxide Level 30 Anion Gap 7 Blood Urea Nitrogen 14 Creatinine 0.75 Est Glomerular Filtrat Rate mL/min > 60 Glucose Level 94 Calcium Level 8.6 Consultation Date/Type/Reason Admit Date/Time Nov 09, 2018 at 06:23 Initial Consult Date Requesting Provider: JUAREZ MAZARIEGOS MD 24 HR Interval Summary Free Text/Dictation S: 48 yo M POD#3 s/p L4-S1 ALIF w/ PSIF. Patient may have history of substance abuse as per . He has had episodes of increased agitation and muscle cramps. Continue to complain of pain. Denies any CP or SOB. CT lumbar spine ordered this am which shows hardware in good position w/o evidence of significant stenosis. Has not passed gas. Tolerating clear diet. O: Vital Signs Date Temp Pulse Resp B/P (MAP) Pulse Ox O2 O2 Flow FiO2 Time Delivery Rate 11/12/18 98.3 104 16 139/75 99 Room Air 07:35 (96) Gen: AAOx3, mild distress Abdomen: mild distension, mild TTP, hypoactive BS, Incision C/D/I Spine: Incision C/D/I, Neurostable A/P:48 yo M POD#3 s/p L4-S1 ALIF w/ PSIF. 1. Pain management consult (? withdrawal from hx of substance abuse) 2. OOB w/ PT 3. Appreciate med recs 4. Advance diet to regular one he is passing gas Exam/Review of Systems Vital Signs Vitals Vital Signs Date Temp Pulse Resp B/P (MAP) Pulse Ox O2 O2 Flow FiO2 Time Delivery Rate 11/12/18 98.3 104 16 139/75 99 Room Air 07:35 (96) 11/11/18 2.0 20:20 Intake and Output 11/11/18 11/11/18 11/12/18 1414:59 22:59 06:59 IntakeIntake Total 150 ml 1280 ml OutputOutput Total 1600 ml 1300 ml BalanceBalance -1600 ml 150 ml -20 ml Medications Medications Current Medications Prochlorperazine (Compazine) 10 mg Q4H PRN PO NAUSEA AND/OR VOMITING; Start 11/09/18 at 15:30 Ondansetron HCl (Zofran Inj) 4 mg Q6H PRN IV NAUSEA AND/OR VOMITING; Start 11/09/18 at 15:30 Al Hydrox/Mg Hydrox/Simethicone (Mag-Al Plus) 15 ml Q4H PRN PO CONSTIPATION Last administered on 11/11/18 10:34; Admin Dose 15 ML; Start 11/09/18 at 15:30 Docusate Sodium (Colace) 100 mg BID PO Last administered on 11/12/18 08:28; Admin Dose 100 MG; Start 11/10/18 at 09:00 Acetaminophen (Tylenol Tab) 650 mg Q4H PRN PO fever; Start 11/09/18 at 15:30 IV Flush (NS 3 ml) 3 ml PER PROTOCOL IV ; Start 11/09/18 at 15:30 Naloxone HCl (Narcan) 0.2 mg Q2M PRN IV overdose; Start 11/09/18 at 15:30 Sodium Chloride 1,000 ml @ 80 mls/hr [id number] IV Last administered on 11/11/18 20:15; Admin Dose 80 MLS/HR; Start 11/09/18 at 17:00 Losartan Potassium (Cozaar) 100 mg DAILY PO Last administered on 11/12/18 08:29; Admin Dose 100 MG; Start 11/10/18 at 09:00 Albuterol (Ventolin Hfa) 2 puff QID PRN INH wheezing; Start 11/09/18 at 17:00 Mometasone Furoate (Asmanex) 1 puff BID INH Last administered on 11/12/18 08:29; Admin Dose 1 PUFF; Start 11/09/18 at 21:00 Pantoprazole (Protonix Tab) 40 mg DAILY@06 PO Last administered on 11/12/18 08 :34; Admin Dose 40 MG; Start 11/10/18 at 06:00 Lorazepam (Ativan) 0.5 mg Q6 PRN IV ANXIETY Last administered on 11/12/18 05:25; Admin Dose 0.5 MG; Start 11/10/18 at 19:30 Nicotine (Nicoderm 21 Mg/ 24hr) 1 patch DAILY TRANSDERM Last administered on 11/12/18at 08:30; Admin Dose 1 PATCH; Start 11/11/18 at 13:30 Hydromorphone HCl (Dilaudid) 1 mg Q4 PRN IV SEVERE PAIN LEVEL 7-10 Last administered on 11/12/18at 10:00; Admin Dose 1 MG; Start 11/11/18 at 16:00 Oxycodone HCl (Oxycontin) 10 mg BID PO Last administered on 11/12/18at 10:03; Admin Dose 10 MG; Start 11/11/18 at 14:00 Lorazepam (Ativan) 1 mg Q6H PRN PO ANXIETY; Start 11/12/18 at 03:00 Diazepam (Valium) 5 mg Q6 PRN IV MUSCLE SPASMS Last administered on 11/12/18at 08:36; Admin Dose 5 MG; Start 11/12/18 at 06:30 Lorazepam (Ativan) 0.5 mg ONCE PRN IV anxiety; Start 11/12/18 at 08:00; Stop 11/12/18 at 12:00 JUAREZ MAZARIEGOS MD Nov 12, 2018 11:28
[2018-11-12] MEDS ORDERED: HYDROmorphONE 0.5 MG/0.5 ML SYG IV PRN (12:30)
--- NOTE | 2018-11-12 13:00 | NUR ---
AMA: Alerted by nurse, Tamiko, re: patient's aggression and stating that he wants to sign out AMA. Called Dr. Sands (surgeon in surgery), and stated that "patient CAN NOT sign out AMA. Put him on 5150 hold", and I'll be there as soon as I can". Called Nursing tree fruit and nut farming supervisor, Crystal, to intervene. DAVID Morrison, removed patient's IV in case patient will leave premises. in the unit and appears to be in distress, crying.
--- NOTE | 2018-11-12 13:05 | NUR ---
NURSE PALLIATIVE CARE SPECIALIST: Nurse Director Community Organization, Crystal, here on the unit to attempt to speak with patient. and patient had verbal exchange and appeared extremely frustrated and distressed. Patient's is aware that surgeon wishes for patient to stay d/t patient not safe for discharge at this time secondary to disorientation and impulsiveness. agrees that patient is in no shape to go home especially without proper discharge plans and that she is "afraid that he will be in trouble when he gets home".
--- NOTE | 2018-11-12 13:35 | NUR ---
UPDATE: diversified crops ii farmworker, Nursing supervisor graphite, security, nurses, and patient's spouse are here to discuss patient's state of mind and attempts at AMA. Patient more calm now, not indicating to leave AMA after speaking to . , Otilia, stated, "I know that it will be difficult for him to leave this way especially if he is not in his right mind to know what's right and wrong. I just know that something bad will happen to him". As per discussion, patient is not being held against his will but encouraged to wait for his surgeon. Patient not insisting to leave anymore at this time. supervisor data processing will be notified to consult. diversified crops ii farmworker here to assist with the situation. Security finds no need to be present. 1:1 sitter in the room as per previous orders. Will closely monitor. DAVID Morrison, attempting to reach pain management doctor and primary doctor as well. No 5150 orders carried out.
--- NOTE | 2018-11-12 13:36 | NUR ---
PT NOTE RN suggested holding therapy at this time as demarcus covarrubias called on pt, pt wanting to leave AMA. Will follow up later if appropriate.
[2018-11-12 15:05] VITALS: BP 140/75; PULSE 116; RESP 18
--- NOTE | 2018-11-12 15:13 | NUR ---
SURGEON: Dr. Sands here to see patient and convincing patient to stay as he is not ready for discharge for home. Patient just voided post ervin removal. RN, Tamiko, spoke with MD with updates. Surgeon ordered for renal ultrasound d/t some trace of blood in OR, ordered stat. Per discussion with RN and surgeon, according to Dr. Sands, "plan for discharge relies on when patient is able to be up with P.T. without difficulty, cleared by P.T. for safety, able to pass gas and void without issues, and pain is managed."
[2018-11-12] MEDS ORDERED: MULTIVITAMINS 10 ML, FOLIC ACID 1 MG in SOD CHLORIDE 0.9% 1,000 ML IVPB SCH (16:08)
[2018-11-12] MEDS ORDERED: THIAMINE 100 MG TAB PO SCH (16:09)
--- NOTE | 2018-11-12 17:15 | NUR ---
EOSS: Dr. Quach, Dr. Hargrove, and Dr. Sands consulted during shift regarding pt complaining of pain, moaning, writhing, pacing, agitated. Multiple pain/anxiety management order changes occurred throughout shift to attempt to manage pain and anxiety. Please see note regarding AMA attempt. Pt received around the clock PRN and scheduled pain and anxiety medication to control pain which was reported to be 10/10 the whole shift. Pt had labile emotions. Pt would rest, then wake up very agitated crying. Pt was encouraged to practice deep breaths and was repeatedly offered ice for pain relief as an adjuvant to his medical pain management regimen. New orders for pain management were followed. Pt successfully voided after ervin removal. Pt was tolerating regular diet and passing gas. Pt refused suppository. Pt was able to ambulate steadily w/o walker, despite encouraging pt to use walker for safety. During change of shift, pt stated he wanted to "walk out the front door." At this time, pt's orientation status was improved from his orientation at 1300. Pt communicated clearly, without slurring, his intentions to leave and demonstrated a clear understanding of the current situation. Addendum: 11/12/18 at 2015 by WILLIE ALCARAZ RN This EOSS which was entered as "1714" was supposed to be timed for 5.
[2018-11-12] MEDS ORDERED: OXYCODONE/ACETAMINOPHEN (5/325) TAB PO PRN (17:30)
[2018-11-12] MEDS ORDERED: BISACODYL 10 MG SUPP PR PRN (17:30)
[2018-11-12] MEDS ORDERED: QUETIAPINE 25 MG TAB PO ONE (17:30)
--- NOTE | 2018-11-12 17:38 | CONS ---
Date/Time of Note Date/Time of Note DATE: 11/12/18 TIME: 17:27 Assessment/Plan Assessment/Plan Hospital Course POD#3 s/p L4-S1 ALIF w/ PSIF now with severe agitation, suspect combination of underlying psychiatric disorder, delirium and alcohol withdrawal 1. Agitation/delirium - adjust medication regimen, standing melatonin qhs + seroquel 25 qhs with seroquel 25 q6h prn 2. Capacity difficult to determine re leaving AMA, currently pt does not provide coherent risks of leaving AMA and I believe he would be holdable if attempts to leave AMA in similar state. However, capacity is fluid and needs to be assessed in real-time 3. EtOH withdrawal: valium 10mg PO q6h with IV ativan prn 4. Banana bag 5. Monitor electrolytes 6. Pain: off SLOPE HOIST OPERATOR, oxycontin 10 TID + percocet 5/325 q4h with IV dilaudid 0.5 for btp. Pain service consulted 7. Bowel regimen, dulcolax prn added 8. Nicotine patch 9. OOB/PT 10. Diet per surgery Dr Lombardo will continue to follow tomorrow Result Diagram: 11/11/18 0858 11/12/18 0938 Results 24hrs Laboratory Tests Test 11/12/18 09:38 Sodium Level 134 L Potassium Level 3.5 Chloride Level 97 Carbon Dioxide Level 30 Anion Gap 7 Blood Urea Nitrogen 14 Creatinine 0.75 Est Glomerular Filtrat Rate mL/min > 60 Glucose Level 94 Calcium Level 8.6 Consultation Date/Type/Reason Admit Date/Time Nov 09, 2018 at 06:23 Initial Consult Date Type of Consult IM Requesting Provider: JUAREZ SANDS MD 24 HR Interval Summary Free Text/Dictation Pt had bad night of agitation, requiring multiple IV benzos and IV dilaudid. Today he has been threatening to leave AMA and having periods of extreme agitation and emotional lability and then periods of somnolence post IV dilaudid. Pain medicine saw, pt reports some binge drinking (only says 6 pack/week to me) but endorsed a fifth of vodka in one day at home. Suspect pt withdrawing given agitation, some delusions, tachycardia and emotional lability. Seen collaboratively with Dr. Sands and RN. Pt crying, attempting to get out of bed. Main stressor seems to be that he is tired of how hospital is treating him and he wants to be completely sedated. We explained that it was not safe to make him that somnolent but would work with him to get him more comfortable. Pt had CT scan confirming hardware in place and renal US as well Constitutional: other (agitated, spasms, insomnia) Detailed Summary Respiratory: no complaints Cardiovascular: no complaints Gastrointestinal: pain, constipation Musculoskeletal: other (spasms) Psychological: anxiety, confusion Exam/Review of Systems Vital Signs Vitals Vital Signs Date Temp Pulse Resp B/P (MAP) Pulse Ox O2 O2 Flow FiO2 Time Delivery Rate 11/12/18 98.1 116 18 140/75 100 15:05 (96) 11/12/18 Room Air 07:35 11/11/18 2.0 20:20 Intake and Output 11/11/18 11/11/18 11/12/18 1414:59 22:59 06:59 IntakeIntake Total 150 ml 1280 ml OutputOutput Total 1600 ml 1300 ml BalanceBalance -1600 ml 150 ml -20 ml Exam Gen: emotional labile, crying at times, moderate distress, wincing. HEENT: MMM, poor dentition CV: tachycardia, no m/r/g GI: distended, soft, appropriate tenderness at surgical site Ext: no edema Neuro: globally intact, EOMI, PERRL, no asterixis Medications Medications Current Medications Prochlorperazine (Compazine) 10 mg Q4H PRN PO NAUSEA AND/OR VOMITING; Start 11/09/18 at 15:30 Ondansetron HCl (Zofran Inj) 4 mg Q6H PRN IV NAUSEA AND/OR VOMITING; Start 11/09/18 at 15:30 Al Hydrox/Mg Hydrox/Simethicone (Mag-Al Plus) 15 ml Q4H PRN PO CONSTIPATION Last administered on 11/11/18at 10:34; Admin Dose 15 ML; Start 11/09/18 at 15:30 Docusate Sodium (Colace) 100 mg BID PO Last administered on 11/12/18at 08:28; Admin Dose 100 MG; Start 11/10/18 at 09:00 Acetaminophen (Tylenol Tab) 650 mg Q4H PRN PO fever; Start 11/09/18 at 15:30 IV Flush (NS 3 ml) 3 ml PER PROTOCOL IV ; Start 11/09/18 at 15:30 Naloxone HCl (Narcan) 0.2 mg Q2M PRN IV overdose; Start 11/09/18 at 15:30 Sodium Chloride 1,000 ml @ 80 mls/hr [id number] IV Last administered on 11/12/18at 12:22; Admin Dose 80 MLS/HR; Start 11/09/18 at 17:00 Losartan Potassium (Cozaar) 100 mg DAILY PO Last administered on 11/12/18 08:29; Admin Dose 100 MG; Start 11/10/18 at 09:00 Albuterol (Ventolin Hfa) 2 puff QID PRN INH wheezing; Start 11/09/18 at 17:00 Mometasone Furoate (Asmanex) 1 puff BID INH Last administered on 11/12/18 08:29; Admin Dose 1 PUFF; Start 11/09/18 at 21:00 Pantoprazole (Protonix Tab) 40 mg DAILY@06 PO Last administered on 11/12/18 08:34; Admin Dose 40 MG; Start 11/10/18 at 06:00 Nicotine (Nicoderm 21 Mg/ 24hr) 1 patch DAILY TRANSDERM Last administered on 11/12/18 08:30; Admin Dose 1 PATCH; Start 11/11/18 at 13:30 Oxycodone HCl (Oxycontin) 10 mg BID PO Last administered on 11/12/18 10:03; Admin Dose 10 MG; Start 11/11/18 at 14:00 Lorazepam (Ativan) 0.25 mg Q6 PRN IV ANXIETY Last administered on 11/12/18 12:46; Admin Dose 0.25 MG; Start 11/12/18 at 13:00 Hydromorphone HCl (Dilaudid) 0.5 mg Q4 PRN IV SEVERE PAIN LEVEL 7-10 Last administered on 11/12/18 15:52; Admin Dose 0.5 MG; Start 11/12/18 at 12:30 Diazepam (Valium) 10 mg Q6H PRN PO agitation; Start 11/12/18 at 14:30 Multivitamins 10 ml/Folic Acid 1 mg/Sodium Chloride 1,010.2 ml @ 80 mls/hr DAILY@09 IVPB ; Start 11/12/18 at 16:08 Thiamine HCl (Vitamin B1) 100 mg DAILY PO ; Start 11/12/18 at 16:09 Melatonin (Melatonin) 9 mg QPM PO ; Start 11/12/18 at 21:00 Quetiapine Fumarate (Seroquel) 25 mg ONCE ONCE PO ; Start 11/12/18 at 17:30; Stop 11/12/18 at 17:31 Oxycodone/ Acetaminophen (Percocet (5/ 325)) 1 tab Q4H PRN PO MODERATE PAIN L EVEL 4-6; Start 11/12/18 at 17:30 Imaging Imaging 1. Recent postoperative changes status post interval interbody and posterior fusion at L4-5/L5-S1 as described above. 2. Lumbar spondylosis/degenerative enthesopathy as described above. 3. Mild levoconvex lumbar scoliosis. NAZ MCCORMACK MD Nov 12, 2018 17:37
[2018-11-12] MEDS ORDERED: QUETIAPINE 25 MG TAB PO PRN (18:00)
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
--- NOTE | 2018-11-12 19:51 | CONS ---
Date/Time of Note Date/Time of Note DATE: 11/12/18 TIME: 19:44 Assessment/Plan Assessment/Plan Result Diagram: 11/11/18 0858 11/12/18 0938 Results 24hrs Laboratory Tests Test 11/12/18 09:38 Sodium Level 134 L Potassium Level 3.5 Chloride Level 97 Carbon Dioxide Level 30 Anion Gap 7 Blood Urea Nitrogen 14 Creatinine 0.75 Est Glomerular Filtrat Rate mL/min > 60 Glucose Level 94 Calcium Level 8.6 Consultation Date/Type/Reason Admit Date/Time Nov 09, 2018 at 06:23 Initial Consult Date Requesting Provider: JUAREZ MAZARIEGSO MD 24 HR Interval Summary Free Text/Dictation Patient insisting that he wants to leave AMA. He is tolerating clears and reports he is passing gas. Per report he has been cleared by physical therapy. He has a history of substance abuse and has been seen by medicine and pain management. He has been diagnosed with possible alcohol withdrawal and has had IV hydration w/ a electrolyte supp w/ IV ativan. He has been requiring IV pain medication for anxiety and pain control. CT of lumbar spine shows that hardware is in good position w/o significant stenosis or evidence of hardware failure. He has not had a BM but denies nausea or SOB. Renal US was within normal limits w/o evidence of obstruction. Luke was removed today and patient urinated. He is AAO to name, place and year. Risks of leaving AMA were explained to him by me and medicine team in detail. Risks described included but were not limited to intractable pain, ileus, and fall risk and medical instability due to withdrawal. He demonstrated understanding and wished to leave AMA. Exam/Review of Systems Vital Signs Vitals Vital Signs Date Temp Pulse Resp B/P (MAP) Pulse Ox O2 O2 Flow FiO2 Time Delivery Rate 11/12/18 98.1 116 18 140/75 100 15:05 (96) 11/12/18 Room Air 07:35 11/11/18 2.0 20:20 Intake and Output 11/11/18 11/11/18 11/12/18 1515:00 23:00 07:00 IntakeIntake Total 150 ml 1280 ml OutputOutput Total 1600 ml 1300 ml BalanceBalance -1600 ml 150 ml -20 ml Medications Medications Current Medications Prochlorperazine (Compazine) 10 mg Q4H PRN PO NAUSEA AND/OR VOMITING; Start 11/09/18 at 15:30 Ondansetron HCl (Zofran Inj) 4 mg Q6H PRN IV NAUSEA AND/OR VOMITING; Start 11/09/18 at 15:30 Al Hydrox/Mg Hydrox/Simethicone (Mag-Al Plus) 15 ml Q4H PRN PO CONSTIPATION L ast administered on 11/11/18 10:34; Admin Dose 15 ML; Start 11/09/18 at 15:30 Docusate Sodium (Colace) 100 mg BID PO Last administered on 11/12/18 08:28; Admin Dose 100 MG; Start 11/10/18 at 09:00 Acetaminophen (Tylenol Tab) 650 mg Q4H PRN PO fever; Start 11/09/18 at 15:30 IV Flush (NS 3 ml) 3 ml PER PROTOCOL IV ; Start 11/09/18 at 15:30 Naloxone HCl (Narcan) 0.2 mg Q2M PRN IV overdose; Start 11/09/18 at 15:30 Losartan Potassium (Cozaar) 100 mg DAILY PO Last administered on 11/12/18 08:29; Admin Dose 100 MG; Start 11/10/18 at 09:00 Albuterol (Ventolin Hfa) 2 puff QID PRN INH wheezing; Start 11/09/18 at 17:00 Mometasone Furoate (Asmanex) 1 puff BID INH Last administered on 11/12/18 08:29; Admin Dose 1 PUFF; Start 11/09/18 at 21:00 Pantoprazole (Protonix Tab) 40 mg DAILY@06 PO Last administered on 11/12/18 08:34; Admin Dose 40 MG; Start 11/10/18 at 06:00 Nicotine (Nicoderm 21 Mg/ 24hr) 1 patch DAILY TRANSDERM Last administered on 11/12/18 08:30; Admin Dose 1 PATCH; Start 11/11/18 at 13:30 Oxycodone HCl (Oxycontin) 10 mg BID PO Last administered on 11/12/18 10:03; Admin Dose 10 MG; Start 11/11/18 at 14:00 Lorazepam (Ativan) 0.25 mg Q6 PRN IV ANXIETY Last administered on 11/12/18 12:46; Admin Dose 0.25 MG; Start 11/12/18 at 13:00 Hydromorphone HCl (Dilaudid) 0.5 mg Q4 PRN IV SEVERE PAIN LEVEL 7-10 Last administered on 11/12/18at 15:52; Admin Dose 0.5 MG; Start 11/12/18 at 12:30 Diazepam (Valium) 10 mg Q6H PRN PO agitation; Start 11/12/18 at 14:30 Multivitamins 10 ml/Folic Acid 1 mg/Sodium Chloride 1,010.2 ml @ 80 mls/hr DAILY@09 IVPB Last administered on 11/12/18at 18:06; Admin Dose 80 MLS/HR; Start 11/12/18 at 16:08 Thiamine HCl (Vitamin B1) 100 mg DAILY PO Last administered on 11/12/18at 18:03; Admin Dose 100 MG; Start 11/12/18 at 16:09 Melatonin (Melatonin) 9 mg QPM PO ; Start 11/12/18 at 21:00 Oxycodone/ Acetaminophen (Percocet (5/ 325)) 1 tab Q4H PRN PO MODERATE PAIN LEVEL 4-6 Last administered on 11/12/18at 18:03; Admin Dose 1 TAB; Start 11/12/18 at 17:30 Bisacodyl (Dulcolax Supp) 10 mg DAILY PRN DC CONSTIPATION; Start 11/12/18 at 17:30 Quetiapine Fumarate (Seroquel) 25 mg Q6 PRN PO AGITATION; Start 11/12/18 at 18:00 JUAREZ MAZARIEGOS MD Nov 12, 2018 19:51
--- NOTE | 2018-11-12 20:03 | NUR ---
NRSG NOTE: RECEIVED PT IN STABLE CONDITION AT 730 FROM [facility]. PT ALERT AND ORIENTED TO PERSON, PLACE, TIME, AND SITUATION. VSS. NO ACUTE DISTRESS. NO SOB. DENIED PAIN. PT VERBALIZED DESIRE TO LEAVE HOSPITAL. WANTED TO LEAVE AGAINST MEDICAL ADVICE. PATIENT EXTREMELY ADAMENT ABOUT LEAVING AMA. AMA DOCUMENT WAS SIGNED, WITNESSED. IV SITE RT HAND WAS REMOVED. INCISION SITE CDI. MD MAZARIEGOS MADE AWARE, PRIMARY MADE AWARE. [employer] MANAGER MIGDALIA AWARE. ZACHERY HERNANDEZSEQUENCING MACHINE OPERATOR AWARE AND PRESENT. PATIENT'S FAMILY MADE AWARE. PATIENT OBSERVED TO LEAVE WITH ALL BELONGINGS. PATIENT LEFT AMA 1954 STABLE CONDITION. Addendum: 11/12/18 at 2019 by LIANET WOODARD RN RISKS + CONSEQUENCES WAS EXPLAINED X3. PATIENT VERBALIZED UNDERSTANDING.
[2018-11-12] MEDS ORDERED: MELATONIN 3 MG TABLET PO SCH (21:00)
--- NOTE | 2018-11-13 06:53 | CONS ---
Date/Time of Note Date/Time of Note DATE: 11/13/18 TIME: 06:49 Assessment/Plan Assessment/Plan Assessment/Plan Status post lumbar sacral spine surgery Being followed by internal medicine and neurosurgery Confusion, delirium Probably related to substance withdrawal what I could ascertain from patient was that he was not taking opioids as an outpatient but was drinking Pain second to recent surgical procedure At this time I will call up primary care physician I suggest lowering the dose of opioids, treatment for probable alcohol withdrawal, benzodiazepines as necessary, banana bag, fluids, close follow-up with neural examination. Will follow pain complaints closely. Judicious and careful use of opioids. Result Diagram: 11/11/18 0858 11/12/18 0938 Results 24hrs Laboratory Tests Test 11/12/18 09:38 Sodium Level 134 L Potassium Level 3.5 Chloride Level 97 Carbon Dioxide Level 30 Anion Gap 7 Blood Urea Nitrogen 14 Creatinine 0.75 Est Glomerular Filtrat Rate mL/min > 60 Glucose Level 94 Calcium Level 8.6 Consultation Date/Type/Reason Admit Date/Time Nov 09, 2018 at 06:23 Hx of Present Illness Postdated note patient seen November 15, 2018 This is a 48-year-old gentleman mated to [facility] for lumbar sacral spine surgery secondary to protracted pain unrelieved by outpatient workup and treatment. Patient was scheduled for surgery and had a definitive procedure done November 09, 2018. I was called to see patient for pain management consultation. At the time I arrived patient is difficult to arouse, somewhat uncooperative with history as he states he is sleepy. It is noted from nursing staff the patient was agitated earlier required sedation and a sitter. I cannot get a clear history of present illness for history of current pain issue. What I could ascertain from patient said he is agitated still having lumbar spine pain, cannot tell me whether or not he has radicular discomfort or warning signs. The last sedation patient received was approximately 6 hours prior to my evaluation. Pain medications that were administered prior to my arrival include Dilaudid, Ativan for sedation. As I questioned patient with stimulation he states to me that he is a drinker approximately 6 beer per day plus a Bacardi. When reviewing patient's medical records suspicion of drug or alcohol withdrawal was entertained. His last drink was 1 week prior to this hospitalization, however that past medical history is not corroborated. Past Medical History Medical History: other (Unknown patient is uncooperative) Allergies: Coded Allergies: No Known Allergy (Unverified , 11/08/18) Social History Alcohol Use: other (Unknown patient drinks rum and beer daily) Smoking Status: Former smoker Exam/Review of Systems Vital Signs Vitals Vital Signs Date Temp Pulse Resp B/P (MAP) Pulse Ox O2 O2 Flow FiO2 Time Delivery Rate 11/12/18 98.1 116 18 140/75 100 15:05 (96) 11/12/18 Room Air 07:35 11/11/18 2.0 20:20 Intake and Output 11/12/18 11/12/18 11/13/18 1515:00 23:00 07:00 IntakeIntake Total 720 ml BalanceBalance 720 ml Exam Constitutional: other (Uncooperative) Psych: confusion Head: normocephalic, atraumatic Eyes: nl conjunctiva, EOMI, nl lids, nl sclera, PERRL; No icteric, No fundi, disc, No other Neck: supple, non-tender; No jvd, No bruits, No masses, No thyromegaly, No nuchal rigidity, No other Respiratory: clear to auscultation, normal air movement; No congested cough, No crackles/rales, No diminished breath sounds, No intercostal retraction, No labored breathing, No respirations, No tactile fremitus, No wheezing, No other Cardiovascular: regular rate and rhythm, nl pulses; No bruits, No diastolic murmur, No edema, No gallop, No irregular rhythm, No jugular venous distention (JVD), No murmurs/extra sounds, No rub, No systolic murmur, No S3, No S4, No other Neurological: COMMERCIAL REPORTER II-XII intact, lethargic, other (Slurring words, requires constant stimulation to answer questions, oriented x2 person and place, motor or sensory findings grossly within normal limits bilateral upper and lower extremities) JOSE LUIS PARISI Nov 13, 2018 06:53
[2018-11-13] MEDS ORDERED: MULTIVITAMINS 10 ML, THIAMINE 100 MG, FOLIC ACID 1 MG in SOD CHLORIDE 0.9% 1,000 ML IVPB SCH (09:00)
== END 2018-11-12 19:45 | disposition left against medical advice (07) | DRG 454 ==
LOC: REC 06:23 → MS1 16:38
PROVIDERS: ADMIT Orthopaedic Surgery; ATTEND Orthopaedic Surgery
PROC: 0SG00K1 Fusion of Lumbar Vertebral Joint with Nonautologous Tissue Substitute, Posterior Approach, Posterior Column, Open Approach (ICD-10-PCS; 2018-11-09)
PROC: 0SG30A0 Fusion of Lumbosacral Joint with Interbody Fusion Device, Anterior Approach, Anterior Column, Open Approach (ICD-10-PCS; 2018-11-09)
PROC: 0SG30K1 Fusion of Lumbosacral Joint with Nonautologous Tissue Substitute, Posterior Approach, Posterior Column, Open Approach (ICD-10-PCS; 2018-11-09)
PROC: 0SB40ZZ Excision of Lumbosacral Disc, Open Approach (ICD-10-PCS; 2018-11-09)
PROC: 0SB20ZZ Excision of Lumbar Vertebral Disc, Open Approach (ICD-10-PCS; 2018-11-09)
PROC: 0WJR0ZZ Inspection of Genitourinary Tract, Open Approach (ICD-10-PCS; 2018-11-09)
PROC: 0SG00A0 Fusion of Lumbar Vertebral Joint with Interbody Fusion Device, Anterior Approach, Anterior Column, Open Approach (ICD-10-PCS; principal; 2018-11-09 08:00)
DX: M51.16 Intervertebral disc disorders with radiculopathy, lumbar region (principal); F10.231 Alcohol dependence with withdrawal delirium; M51.17 Intervertebral disc disorders with radiculopathy, lumbosacral region; M47.26 Other spondylosis with radiculopathy, lumbar region; M48.07 Spinal stenosis, lumbosacral region; M48.061 Spinal stenosis, lumbar region without neurogenic claudication; I10 Essential (primary) hypertension; F17.210 Nicotine dependence, cigarettes, uncomplicated; J45.40 Moderate persistent asthma, uncomplicated; K21.9 Gastro-esophageal reflux disease without esophagitis; R45.1 Restlessness and agitation; R31.0 Gross hematuria
CPT/HCPCS: 72131; 76775; 80048; 85014; 85018; 85025; 86850; 86900; 86901; 86920; 97110; 97116; 97161; 97530; C1762; J0690; J1170; J1200; J1644; J2060; J2175; J3010; J3360; J3411; J7030; L8699